=== PATIENT | female | born 1990 | race Caucasian/White ===

== ENCOUNTER 2021-09-04 00:11 | Emergency (ER) | payer SELFPAY ==
[2021-09-04 01:24] LABS: Absolute Lymphocytes (CBC) 1.8 K/uL (0.7-4.9); Hematocrit 31.7 % (36.0-45.0); Lymphocytes % 31.3 % (15.3-44.8); MPV 7.4 fL (7.6-11.3); RBC Red Blood Cell Count 4.75 M/uL (3.86-4.86)
[2021-09-04 01:30] LABS: Urine Blood Negative (Negative); Urine Glucose Negative (Negative); Urine Protein Negative (Negative); Urine pH 6.5 (5.0-7.0)
[2021-09-04 01:42] LABS: Albumin 4.6 g/dL (3.4-5.0); Bilirubin Total 0.2 mg/dL (0.2-1.0); Potassium 3.4 mmol/L (3.5-5.1)
[2021-09-04 01:46] LABS: Barbiturates NEGATIVE (NEGATIVE); Benzodiazepines NEGATIVE (NEGATIVE); Cocaine NEGATIVE (NEGATIVE); METHAMPHETAM NEGATIVE (NEGATIVE); Methadone NEGATIVE (NEGATIVE); Opiates NEGATIVE (NEGATIVE); Phencyclidine NEGATIVE (NEGATIVE); THC Cannibis NEGATIVE (NEGATIVE)
[2021-09-04 01:50] LABS: Anisocytosis 1+; Blood Morphology Comment NOTED (NOT SEEN); Hypochromasia 1+; Ovalocytes 1+; Platelet Estimate INCR; Platelets, Giant OCC; Poikilocytosis 1+; White Blood Cell Scan OK (OK)
[2021-09-04 01:51] LABS: Elliptocytes 2+; Teardrop Cell FEW
[2021-09-04] MEDS ORDERED: ONDANSETRON 4 MG/2 ML VIAL ONE (05:00)
[2021-09-04] MEDS ORDERED: KETOROLAC 30 MG/ML INJ ONE (05:00)
--- NOTE | 2021-09-04 06:25 | EDPHYS ---
Physician Documentation [facility] Name: Karen Bunn Age: 30 yrs Sex: Female : 1990 Arrival Date: 09/04/2021 Time: 00:15 Bed 5 Private MD: ED Physician Miguel Sosa HPI: 09/04 01:09 This 30 yrs old Female presents to ER via EMS with complaints of AMS. kdr 01:09 The patient presents with decreased mental status, decreased responsiveness. Onset: The kdr symptoms/episode began/occurred just prior to arrival. Possible causes: alcohol, head injury. Associated signs and symptoms: The patient has no apparent associated signs or symptoms. Current symptoms: In the emergency department the patient's symptoms are unchanged from the initial presentation. Patient's baseline: Neuro: alert and fully oriented, Motor: no deficits, Ambulation: walks without assistance, Speech: normal for age. Unable to obtain HPI due to altered mental status. It is unknown whether or not the patient has had similar symptoms in the past. It is unknown whether or not the patient has recently seen a physician. There was a reported crawfish crawl this evening to which her and her boyfriend currently attended. Patient was found laying on the sidewalk by the police. The boyfriend that was with her did not know her contact information specifically, her address. Patient otherwise appears to be stable and with significant drink, she did arouse and respond to questions. Historical: - Allergies: 00:28 No Known Allergies; kd3 - PMHx: 00:28 None; kd3 - PSHx: 00:28 None; kd3 - Immunization history:: Adult Immunizations unknown. - Social history:: Smoking status: unknown. ROS: 01:09 Constitutional: Unable to obtain Eyes: Negative for injury, pain, redness, and kdr discharge, Neck: Negative for injury, pain, and swelling, Cardiovascular: Negative for chest pain, palpitations, and edema, Respiratory: Negative for shortness of breath, cough, wheezing, and pleuritic chest pain, Abdomen/GI: Negative for abdominal pain, nausea, vomiting, diarrhea, and constipation, Back: Negative for injury and pain, MS/Extremity: Negative for injury and deformity. Exam: 01:09 Constitutional: This is a well developed, well nourished patient who is awake, alert, kdr and in no acute distress. Head/Face: Normocephalic, atraumatic. Eyes: Pupils equal round and reactive to light, extra-ocular motions intact. Lids and lashes normal. Conjunctiva and sclera are non-icteric and not injected. Cornea within normal limits. Periorbital areas with no swelling, redness, or edema. Neck: Trachea midline, no thyromegaly or masses palpated, and no cervical lymphadenopathy. Supple, full range of motion without nuchal rigidity, or vertebral point tenderness. No Meningismus. Chest/axilla: Normal chest wall appearance and motion. Nontender with no deformity. No lesions are appreciated. Cardiovascular: Regular rate and rhythm with a normal S1 and S2. No gallops, murmurs, or rubs. Normal PMI, no JVD. No pulse deficits. Respiratory: Lungs have equal breath sounds bilaterally, clear to auscultation and percussion. No rales, rhonchi or wheezes noted. No increased work of breathing, no retractions or nasal flaring. Abdomen/GI: Soft, non-tender, with normal bowel sounds. No distension or tympany. No guarding or rebound. No evidence of tenderness throughout. Back: No spinal tenderness. No costovertebral tenderness. Full range of motion. Skin: Warm, dry with normal turgor. Normal color with no rashes, no lesions, and no evidence of cellulitis. MS/ Extremity: Pulses equal, no cyanosis. Neurovascular intact. Full, normal range of motion. Neuro: Awake and alert, GCS 15, oriented to person, place, time, and situation. Cranial nerves II-XII grossly intact. Motor strength 5/5 in all extremities. Sensory grossly intact. Cerebellar exam normal. Normal gait. Psych: Awake, alert, with orientation to person, place and time. Behavior, mood, and affect are within normal limits. Vital Signs: 00:25 BP 112 / 69; Pulse 102; Resp 19; Pulse Ox 97% on R/A; Weight 68.95 kg; Height 5 ft. 7 kd3 in. (170.18 cm); 02:06 BP 115 / 71; Pulse 100; Resp 18; Pulse Ox 99% on R/A; kd3 05:22 Temp 98.4; kd3 06:30 BP 113 / 72; Pulse 99; Resp 17; Pulse Ox 99% on R/A; kd3 00:25 Body Mass Index 23.81 (68.95 kg, 170.18 cm) kd3 MDM: 01:09 Data reviewed: vital signs, nurses notes, lab test result(s), radiologic studies. kdr Counseling: I had a detailed discussion with the patient and/or guardian regarding: the historical points, exam findings, and any diagnostic results supporting the discharge/admit diagnosis, lab results, radiology results. 06:24 Patient medically screened. kdr 09/04 00:28 Order name: CBC with Diff; Complete Time: 02:43 kdr 09/04 00:28 Order name: Comprehensive Metabolic Panel; Complete Time: :43 kdr 09/04 00:28 Order name: UDS; Complete Time: :43 kdr 09/04 00:28 Order name: ETOH Level; Complete Time: : kdr 09/04 01:27 Order name: CBC Smear Scan; Complete Time: 02:43 EDMS 09/04 01:31 Order name: Urine Dipstick-Ancillary; Complete Time: 01:33 EDMS 09/04 01:09 Order name: CT Head C Spine kdr 09/04 01:09 Order name: Urine Test (obtain specimen); Complete Time: 01:31 kdr 09/04 01:33 Order name: Urine --Ancillary (enter results); Complete Time: 02:43 mw2 Administered Medications: 05:07 Drug: Ketorolac 15 mg Route: IVP; Site: right antecubital; kd3 06:30 Follow up: Response: Pain is decreased kd3 05:07 Drug: Zofran (Ondansetron) 4 mg Route: IVP; Site: right antecubital; kd3 06:30 Follow up: Response: No adverse reaction; Nausea is decreased kd3 Disposition Summary: 09/04/21 06:24 Discharge Ordered Location: Home kdr Problem: new kdr Symptoms: have improved kdr Condition: Stable kdr Diagnosis - Alcohol abuse with intoxication kdr - Alcohol abuse with intoxication, uncomplicated kdr Followup: kdr - With: Private Physician - When: 2 - 3 days - Reason: If symptoms return, Further diagnostic work-up, Recheck today's complaints, Continuance of care, Re-evaluation by your physician Discharge Instructions: - Discharge Summary Sheet kdr - Finding Treatment for Addiction kdr - Alcohol Use Disorder kdr - Substance Use Disorder kdr - Alcohol Intoxication, [id number] kdr - Alcohol Abuse and Nutrition kdr - Binge-Drinking Information, Adult kdr - Alcohol Withdrawal Syndrome, [id number] kdr Forms: - Medication Reconciliation Form kdr - Thank You Letter kdr Signatures: Dispatcher [employer] Miguel Quijano MD MD kdr Doucette, Kyli, RN RN kd3 Cecy Bedoya PA PA sb3
--- NOTE | 2021-09-04 06:25 | ER ---
Nurse's Notes [facility] Name: Karen Bunn Age: 30 yrs Sex: Female : 1990 Arrival Date: 09/04/2021 Time: 00:15 Bed 5 Private MD: Diagnosis: Alcohol abuse with intoxication;Alcohol abuse with intoxication, uncomplicated Presentation: 09/04 00:25 Chief complaint: EMS states: PT FOUND LAYING ON THE SIDE WALK. PT IS INTOXICATED. PT kd3 TRANSPORTED TO ER. NO VOMITING DURING TRANSPORT. Coronavirus screen: Vaccine status: Patient reports being unvaccinated. PT INTOXICATED. UNABLE TO ANSWER QUESTIONS. Ebola Screen: No symptoms or risks identified at this time. Ebola Screen: No symptoms or risks identified at this time. Initial Sepsis Screen: Does the patient meet any 2 criteria? No. Patient's initial sepsis screen is negative. Does the patient have a suspected source of infection? No. Patient's initial sepsis screen is negative. Risk Assessment: Do you want to hurt yourself or someone else? Patient reports no desire to harm self or others. Onset of symptoms was September 04, 2021. 00:25 Method Of Arrival: EMS: [facility] kd3 00:25 Acuity: CARLOS 3 kd3 Triage Assessment: 00:28 General: Appears in no apparent distress. Behavior is uncooperative. Pain: Denies pain. kd3 Historical: - Allergies: 00:28 No Known Allergies; kd3 - PMHx: 00:28 None; kd3 - PSHx: 00:28 None; kd3 - Immunization history:: Adult Immunizations unknown. - Social history:: Smoking status: unknown. Screenin:30 Abuse screen: Denies threats or abuse. Denies injuries from another. Nutritional kd3 screening: No deficits noted. Tuberculosis screening: No symptoms or risk factors identified. Fall Risk Gait- Impaired (20 pts.). Assessment: 01:12 General: Appears in no apparent distress. Behavior is uncooperative, Smells of alcohol. kd3 Neuro: Level of Consciousness is intoxicated . Oriented to person. Cardiovascular: Patient's skin is warm and dry. Respiratory: Airway is patent Trachea midline Respiratory effort is even, unlabored. 02:05 General: Appears comfortable, Behavior is uncooperative, Smells of alcohol. Pain: kd3 Denies pain. Neuro: Level of Consciousness is Oriented to. Cardiovascular: Patient's skin is warm and dry. Respiratory: Breath sounds are clear bilaterally. 03:05 Reassessment: sleeping in bed. vitals stable. kd3 06:29 Reassessment: Patient and/or family updated on plan of care and expected duration. Pain kd3 level reassessed. Patient is alert, oriented x 3, equal unlabored respirations, skin warm/dry/pink. Vital Signs: 00:25 BP 112 / 69; Pulse 102; Resp 19; Pulse Ox 97% on R/A; Weight 68.95 kg; Height 5 ft. 7 kd3 in. (170.18 cm); 02:06 BP 115 / 71; Pulse 100; Resp 18; Pulse Ox 99% on R/A; kd3 05:22 Temp 98.4; kd3 06:30 BP 113 / 72; Pulse 99; Resp 17; Pulse Ox 99% on R/A; kd3 00:25 Body Mass Index 23.81 (68.95 kg, 170.18 cm) kd3 ED Course: 00:15 Patient arrived in ED. mw2 00:25 Marta Junior, АНДРЕЙ is Primary Nurse. kd3 00:25 Inserted saline lock: 20 gauge in right antecubital area, using aseptic technique. kd3 00:28 Miguel Sosa MD is Attending Physician. kdr 00:28 Triage completed. kd3 00:30 Patient has correct armband on for positive identification. Bed in low position. Side kd3 rails up X2. 00:30 Arm band placed on right wrist. kd3 01:51 CT Head C Spine In Process Unspecified. EDMS Administered Medications: 05:07 Drug: Ketorolac 15 mg Route: IVP; Site: right antecubital; kd3 06:30 Follow up: Response: Pain is decreased kd3 05:07 Drug: Zofran (Ondansetron) 4 mg Route: IVP; Site: right antecubital; kd3 06:30 Follow up: Response: No adverse reaction; Nausea is decreased kd3 Outcome: 06:24 Discharge ordered by . kdr 06:30 Patient left the ED. kd3 Signatures: Dispatcher [employer] EDMS Miguel Sosa MD MD [facility] Manda Garza 2 Marta Junior RN RN kd3
[2021-09-04 06:39] VITALS: O2SAT 99
[2021-09-04 06:40] VITALS: TEMP 98.4
[2021-09-04 06:41] VITALS: BP 113/72
--- NOTE | 2021-09-05 09:25 | RAD REPORT ---
EXAM DESCRIPTION: CT - [id number] - 09/04/2021 6:52 am CLINICAL HISTORY: AMS COMPARISON: None. TECHNIQUE: CT HEAD AND CERVICAL SPINE WITHOUT CONTRAST on 09/04/2021 1:09 AM CDT This exam was performed according to our departmental dose-optimization program, which includes autom ated exposure control, adjustment of the mA and/or kV according to patient size and/or use of iterati ve reconstruction technique. FINDINGS: Brain: There is no acute hemorrhage, mass effect or midline shift. Arias-white differentiat ion is preserved. There is no hydrocephalus. There is no significant volume loss for age. The calvarium is intact. Orbits and globes are unremarkable. The paranasal sinuses are clear. Mastoid air cells are clear. Cervical Spine: There is no acute fracture. Alignment is anatomic. Disc spaces are maintained. Vertebral body heights are preserved. Soft tissues are unremarkable. IMPRESSION: No acute postraumatic findings. Electronically signed by: Frederick Mitchell MD 09/04/2021 2:40 AM CDT Due to temporary technical issues with the PACS/Fluency reporting system, reports are being signed by the in house radiologists without review as a courtesy to insure prompt reporting. The interpreting radiologist is fully responsible for the content of the report.
== END 2021-09-04 06:30 | disposition home or self-care (01) ==
LOC: ER 00:11
DX: F10.129 Alcohol abuse with intoxication, unspecified (principal)
CPT/HCPCS: 36415; 70450; 72125; 80053; 80307; 80320; 81003; 81025; 85025; 96374; 96375; 99284; J2405

== ENCOUNTER 2022-03-14 19:25 | Emergency (ER) | payer OTHER, SELFPAY ==
--- OUTSIDE RECORDS SUMMARY | 2022-03-14 19:28 | XMS REPORT | Continuity of Care Document ---
:1990 Author Organization [facility] t Address [address] [place] [address] Care Team Providers Name Role Phone Antonio Ivey DO Primary Care Physician MARC DURAN Attending Clinician Unavailable Antonio Ivey DO Attending Clinician Payers Payer Name Policy Type Policy Number Effective Date Expiration Date Luciano ng [employer]-ALLIED 2 [id number] 2021 00:00:00 BNFT SYSTEM/* Problems Condition Condition Condition Status Onset Resolution Last Treating Co mments Source Name Details Category Date Date Treatment Clinician Date Acute pain Acute pain Disease Active K elsey of right of right [address] shoulder shoulder 00:00: 00 Allergies, Adverse Reactions, Alerts This patient has no known allergies or adverse reactions. Social History Social Habit Start Date Stop Date Quantity Comments Source History SDOH Valery quinn Alcohol Binge History SDOH Valery quinn Alcohol Frequency History SDKS Valery quinn Alcohol Std Drinks Alcohol intake 2021-10-19 2021-10-19 Current drinker of Ajay Aldrich 00:00:00 00:00:00 alcohol (finding) Alcohol Comment 2021-10-11 2021-10-11 occasionally Valery Aldrich 00:00:00 00:00:00 Education 2021-10-11 2021-10-11 16 Valery Aldrich 00:00:00 00:00:00 Tobacco use and 2021-10-11 2021-10-11 Smokeless tobacco Ajay Aldrich exposure 00:00:00 00:00:00 non-user Sex Ass[birth year] Valery german 00:00:00 00:00:00 Smoking Status Start Date Stop Date Source Never smoked tobacco Valery cardoso Medications Ordered Filled Start Stop Current Ordering Indication Dosage Frequency Signature Comments Components Source Medication Medication Date Date Medication? Clinician (SIG) Name Name Meloxicam Yes [id number] 15mg QD Take 1 Ke lsey 15 MG oral 5-31 tablet (15 Sey bold Tablet 00:00: mg total) 00 by mouth daily as needed for pain Tizanidine Yes [id number] 2mg Q.5D Take 1 K elsey HCl 2 MG 5-31 capsule (2 Seybo ld oral 00:00: mg total) Capsule 00 by mouth as needed in the morning and 1 capsule (2 mg total) as needed in the evening for muscle spasms. Meloxicam Yes [id number] 15mg QD Take 1 Ke lsey 15 MG oral 5-31 tablet (15 Sey bold Tablet 00:00: mg total) 00 by mouth daily as needed for pain Tizanidine Yes [id number] 2mg Q.5D Take 1 K elsey HCl 2 MG 5-31 capsule (2 Seybo ld oral 00:00: mg total) Capsule 00 by mouth as needed in the morning and 1 capsule (2 mg total) as needed in the evening for muscle spasms. Vital Signs Vital Name Observation Time Observation Value Comments Source Body height 2021-10-19 15:38:00 160 cm Valery swan Body weight 2021-10-19 15:38:00 58.514 kg Valery swan BMI 2021-10-19 15:38:00 22.85 kg/m2 Valery swan Systolic blood pressure 2021-10-11 18:50:00 114 mm[Hg] Valery Aldrich Diastolic blood 2021-10-11 18:50:00 70 mm[Hg] Kristina Aldrich pressure Heart rate 2021-10-11 18:50:00 98 /min Valery swan Body temperature 2021-10-11 18:50:00 36.78 Carmela Shonna Aldrich Respiratory rate 2021-10-11 18:50:00 14 /min Shonna Aldrich Body height 2021-10-11 18:50:00 160 cm Valery swan Body weight 2021-10-11 18:50:00 58.514 kg Valery swan BMI 2021-10-11 18:50:00 22.85 kg/m2 Valery ingramcheyenne Procedures This patient has no known procedures. Encounters Start End Encounter Admission Attending Care Care Encounter Source Date/Time Date/Time Type Type Clinicians Facility Department ID 2021-10-19 2021-10-19 Office NEAL DURAN [id number] Valery 10:30:00 10:30:00 Visit MARC [id number] Se ybold [id number] 2021-10-19 2021-10-19 Outpatient VALERY RASMUSSEN [id number] Valery 09:55:00 09:55:00 Seybol d 2021-10-11 2021-10-11 Office Kenney Ivey [id number] Valery 14:00:00 14:30:00 Visit Antonio Horn [id number] Se ybold [id number] 2021-10-11 2021-10-11 Outpatient VALERY DURAN [id number] Valery 00:00:00 00:00:00 MARC santos Results This patient has no known results.
[2022-03-14] MEDS ORDERED: MAGNES/ALUMIN/SIMET 30ML UCUP ONE (20:24)
[2022-03-14] MEDS ORDERED: LIDOCAINE VISCOUS 2% SOLN 15 ML UDC ONE (20:24)
[2022-03-14 20:41] LABS: Urine Blood 2+ (Negative); Urine Glucose Negative (Negative); Urine Protein Negative (Negative); Urine Specific Gravity 1.025 (1.005-1.030)
[2022-03-14 20:50] LABS: Absolute Lymphocytes (CBC) 1.1 K/uL (0.7-4.9); Hematocrit 28.1 % (36.0-45.0); Lymphocytes % 21.6 % (15.3-44.8); MCV 64.6 fL (80-100); MPV 7.5 fL (7.6-11.3); RBC Red Blood Cell Count 4.35 M/uL (3.86-4.86)
[2022-03-14 21:00] LABS: Blood Morphology Comment NOTED (NOT SEEN); Hypochromasia 2+; Platelet Estimate ADEQ; White Blood Cell Scan OK (OK)
[2022-03-14 21:01] LABS: Urine Specific Gravity/Preg 1.025 (1.005-1.030)
[2022-03-14 21:12] LABS: Potassium 3.4 mmol/L (3.5-5.1); Troponin High Sensitivity 4.8 pg/mL (<58.9)
[2022-03-14] MEDS ORDERED: OSELTAMIVIR 75 MG CAP ONE (23:02)
--- NOTE | 2022-03-14 23:02 | EDPHYS ---
Physician Documentation [facility] Name: Karen Bunn Age: 31 yrs Sex: Female : 1990 Arrival Date: 03/14/2022 Time: 19:31 Bed 17 Private MD: ED Physician Ayad Appiah HPI: 03/14 22:17 This 31 yrs old Female presents to ER via Ambulatory with complaints of chest pain, abd rn pain. 22:17 The patient or guardian reports chest pain that is located primarily in the substernal rn area, epigastric area. The pain does not radiate. Associated signs and symptoms: Pertinent positives: abdominal pain, nasal congestion, Pertinent negatives: cough, lower extremity swelling, palpitations, shortness of breath, syncope. The chest pain is described as sharp, stabbing. Duration: The patient or guardian reports multiple episodes, that are intermittent. Modifying factors: The symptoms are alleviated by nothing. the symptoms are aggravated by deep breath. Severity of pain: At its worst the pain was mild in the emergency department the pain is unchanged. The patient has not experienced similar symptoms in the past. The patient has not recently seen a physician. Pt reports approx 1-2 hours of lower chest pain and epigastric area, started after eating, no fever, + runny nose. Denies cough. Denies vomiting. . 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 Flu vaccine is not up to date. - Social history:: Smoking status: Patient denies any tobacco usage or history of. Patient/guardian denies using alcohol, street drugs. - Family history:: not pertinent. - Hospitalizations: : No recent hospitalization is reported. ROS: 22:17 Constitutional: Negative for fever, chills, and weight loss, Eyes: Negative for injury, rn pain, redness, and discharge, Neck: Negative for injury, pain, and swelling, Cardiovascular: Negative for palpitations, and edema, Respiratory: Negative for shortness of breath, cough, wheezing Abdomen/GI: Negative for vomiting, diarrhea, and constipation, Back: Negative for injury and pain, MS/Extremity: Negative for injury and deformity, Skin: Negative for injury, rash, and discoloration, Neuro: Negative for headache, numbness, tingling, and seizure. Exam: 21:35 ECG was reviewed by the Attending Physician. rn 22:17 Constitutional: This is a well developed, well nourished patient who is awake, alert, rn and in no acute distress. Head/Face: Normocephalic, atraumatic. Eyes: Periorbital areas with no swelling, redness, or edema. ENT: No stridor. Mucous membranes moist. Cardiovascular: Regular rate and rhythm. No pulse deficits. Respiratory: No increased work of breathing, no retractions or nasal flaring. Clear bilateral breath sounds, no retractions. Abdomen/GI: soft, mild epigastric tenderness, no rebound Skin: Warm, dry MS/ Extremity: Pulses equal, no cyanosis. Neuro: Awake and alert, GCS 15 Vital Signs: 19:34 BP 117 / 82; Pulse 70; Resp 17 S; Temp 98.0(O); Pulse Ox 100% on R/A; Weight 52.16 kg kb3 (R); Height 5 ft. 3 in. (160.02 cm) (R); Pain 8/10; 20:42 BP 115 / 74; Pulse 68; Resp 17; Pulse Ox 100% ; jj7 21:48 BP 122 / 86; Pulse 64; Resp 17; Pulse Ox 99% ; jj7 22:45 BP 118 / 73; Pulse 62; Resp 17; Pulse Ox 99% ; jj7 23:19 BP 114 / 63; Pulse 60; Resp 18; Pulse Ox 100% ; Pain 0/10; jj7 19:34 Body Mass Index 20.37 (52.16 kg, 160.02 cm) kb3 MDM: 19:39 Patient medically screened. rn 23:00 ED course: [facility] not working, called Dr. Membreno who reports CXR/CT PE/Ultrasound rn neg for acute findings. . 03/14 19:47 Order name: Basic Metabolic Panel; Complete Time: 21:27 rn 03/14 19:47 Order name: CBC with Diff; Complete Time: 21:07 rn 03/14 19:47 Order name: NT PRO-BNP; Complete Time: 21:27 rn 03/14 19:47 Order name: Troponin HS; Complete Time: 21:27 rn 03/14 19:47 Order name: Flu; Complete Time: 21:07 rn 03/14 20:41 Order name: Urine --Ancillary (enter results); Complete Time: 21:07 mw2 03/14 19:47 Order name: XRAY Chest (1 view) rn 03/14 19:47 Order name: CT Chest For PE Angio rn 03/14 20:06 Order name: US Abdomen Limited rn 03/14 20:42 Order name: Urine Dipstick-Ancillary; Complete Time: 21:07 EDMS 03/14 21:01 Order name: CBC Smear Scan; Complete Time: 21:07 EDWY 03/14 19:47 Order name: EKG; Complete Time: 19:48 rn 03/14 19:47 Order name: Cardiac monitoring; Complete Time: 20:21 rn 03/14 19:47 Order name: EKG - Nurse/Tech; Complete Time: 20:21 03/14 19:47 Order name: IV Saline Lock; Complete Time: 20:41 rn 03/14 19:47 Order name: Labs collected and sent; Complete Time: 20:41 rn 03/14 19:47 Order name: O2 Per Protocol; Complete Time: 20:21 rn 03/14 19:47 Order name: O2 Sat Monitoring; Complete Time: 20:21 rn 03/14 19:47 Order name: Urine Dipstick-Ancillary (obtain specimen); Complete Time: 20:41 rn 03/14 19:47 Order name: Urine Test (obtain specimen); Complete Time: 20:41 rn EC:35 Rate is 61 beats/min. Rhythm is regular. QRS [place]lin is Normal. AL interval is normal. QRS rn interval is normal. QT interval is normal. No Q waves. T waves are Normal. No ST changes noted. Clinical impression: Normal ECG. Interpreted by me. Reviewed by me. Administered Medications: 20:41 Drug: GI Cocktail without - (Maalox Suspension 30 ml, Lidocaine Liquid 2 % 15 jj7 ml) Route: PO; 23:08 Follow up: Response: No adverse reaction; Pain is decreased jj7 23:05 Drug: Ketorolac 15 mg Route: IVP; Site: right antecubital; jj7 23:09 Follow up: Response: No adverse reaction jj7 23:05 Drug: Tamiflu (oseltamivir) 75 mg Route: PO; jj7 23:09 Follow up: Response: No adverse reaction jj7 Disposition Summary: 03/14/22 23:01 Discharge Ordered Location: Home rn Problem: new rn Symptoms: have improved rn Condition: Stable rn Diagnosis - Influenza due to other identified influenza virus with other respiratory rn manifestations - Influenza due to other identified influenza virus with gastrointestinal rn manifestations Followup: rn - With: Private Physician - When: As needed - Reason: Recheck today's complaints, Re-evaluation by your physician Discharge Instructions: - Discharge Summary Sheet rn - Nonspecific Chest Pain, Adult rn - Influenza, Adult rn Forms: - Medication Reconciliation Form rn - Thank You Letter rn - Antibiotic disability attorney - Prescription Opioid Use rn Prescriptions: - Tamiflu 75 mg Oral Capsule - take 1 tablet by ORAL route every 12 hours for 5 days; 10 tablet; Refills: 0, rn Product Selection Permitted Signatures: Dispatcher [employer] Ayad Del Valle MD MD rn Bradberry, Kelly RN RN kb3 Paula Escalera RN RN jj7
--- NOTE | 2022-03-14 23:02 | ER ---
Nurse's Notes [facility] Name: Karen Bunn Age: 31 yrs Sex: Female : 1990 Arrival Date: 03/14/2022 Time: 19:31 Bed 17 Private MD: Diagnosis: Influenza due to other identified influenza virus with other respiratory manifestations;Influenza due to other identified influenza virus with gastrointestinal manifestations Presentation: 03/14 19:34 Chief complaint: Patient states: chest pain starting about an hour ago. center chest. kb3 described as sharp, stabbing. radiates to back. complaints of dizziness and shortness of breath. Coronavirus screen: Client denies travel out of the [place] in the last 14 days. At this time, the client does not indicate any symptoms associated with coronavirus-19. Ebola Screen: No symptoms or risks identified at this time. Initial Sepsis Screen: Does the patient meet any 2 criteria? No. Patient's initial sepsis screen is negative. Does the patient have a suspected source of infection? No. Patient's initial sepsis screen is negative. Risk Assessment: Do you want to hurt yourself or someone else? Patient reports no desire to harm self or others. Onset of symptoms was March 14, 2022. 19:34 Method Of Arrival: Ambulatory kb3 19:34 Acuity: CARLOS 3 kb3 Triage Assessment: 19:36 General: Appears in no apparent distress. uncomfortable, Behavior is calm, cooperative. kb3 Pain: Complains of pain in chest Pain radiates to back Quality of pain is described as heavy, sharp, shooting, stabbing, Noted to be grimacing, guarding, resistant to movement. EENT: No deficits noted. No signs and/or symptoms were reported regarding the EENT system. Neuro: No deficits noted. Vyas Agitation-Sedation Scale (RASS): 0 - Alert and Calm Level of Consciousness is awake, alert, obeys commands, Oriented to person, place, time, situation. Cardiovascular: No deficits noted. Reports chest pain, lightheadedness, shortness of breath, Capillary refill < 3 seconds Clubbing of nail beds is absent JVD is absent Patient's skin is warm and dry. Respiratory: No deficits noted. Airway is patent Trachea midline Respiratory effort is even, unlabored, Respiratory pattern is regular, symmetrical, Breath sounds are clear bilaterally. GI: No deficits noted. No signs and/or symptoms were reported involving the gastrointestinal system. Abdomen is flat, non-distended. : No deficits noted. No signs and/or symptoms were reported regarding the genitourinary system. Derm: No deficits noted. No signs and/or symptoms reported regarding the dermatologic system. Skin is intact, is healthy with good turgor, Skin is dry, Skin is normal, Skin temperature is warm. Musculoskeletal: No deficits noted. No signs and/or symptoms reported regarding the musculoskeletal system. Circulation, motion, and sensation intact. Range of motion: intact in all extremities. 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 Flu vaccine is not up to date. - Social history:: Smoking status: Patient denies any tobacco usage or history of. Patient/guardian denies using alcohol, street drugs. - Family history:: not pertinent. - Hospitalizations: : No recent hospitalization is reported. Screenin:40 Abuse screen: Denies threats or abuse. Nutritional screening: No deficits noted. jj7 Tuberculosis screening: No symptoms or risk factors identified. Fall Risk None identified. Assessment: 19:40 General: Appears in no apparent distress. uncomfortable, Behavior is calm, cooperative, jj7 appropriate for age. Pain: Complains of pain in xiphoid area and mid-sternal area Quality of pain is described as heavy. 23:21 Pain: Pain began suddenly. jj7 Vital Signs: 19:34 BP 117 / 82; Pulse 70; Resp 17 S; Temp 98.0(O); Pulse Ox 100% on R/A; Weight 52.16 kg kb3 (R); Height 5 ft. 3 in. (160.02 cm) (R); Pain 8/10; 20:42 BP 115 / 74; Pulse 68; Resp 17; Pulse Ox 100% ; jj7 21:48 BP 122 / 86; Pulse 64; Resp 17; Pulse Ox 99% ; jj7 22:45 BP 118 / 73; Pulse 62; Resp 17; Pulse Ox 99% ; jj7 23:19 BP 114 / 63; Pulse 60; Resp 18; Pulse Ox 100% ; Pain 0/10; jj7 19:34 Body Mass Index 20.37 (52.16 kg, 160.02 cm) kb3 ED Course: 19:31 Patient arrived in ED. ja2 19:36 Triage completed. kb3 19:36 Arm band placed on right wrist. kb3 19:39 Ayad Appiah MD is Attending Physician. rn 19:40 Patient has correct armband on for positive identification. Placed in gown. Bed in low jj7 position. Call light in reach. Client placed on continuous cardiac and pulse oximetry monitoring. NIBP monitoring applied. radiation monitor on. Pulse ox on. NIBP on. 20:18 XRAY Chest (1 view) In Process Unspecified. EDMS 20:20 Paula Escalera, АНДРЕЙ is Primary Nurse. jj7 20:41 Flu Sent. jj7 20:41 Basic Metabolic Panel Sent. jj7 20:41 CBC with Diff Sent. jj7 20:41 NT PRO-BNP Sent. jj7 20:41 Troponin HS Sent. jj7 20:50 US Abdomen Limited In Process Unspecified. EDMS 21:59 CT Chest For PE Angio In Process Unspecified. EDMS 23:20 No provider procedures requiring assistance completed. IV discontinued, intact, jj7 bleeding controlled, No redness/swelling at site. Pressure dressing applied. Patient maintains SpO2 saturation greater than 95% on room air. Administered Medications: 20:41 Drug: GI Cocktail without - (Maalox Suspension 30 ml, Lidocaine Liquid 2 % 15 jj7 ml) Route: PO; 23:08 Follow up: Response: No adverse reaction; Pain is decreased jj7 23:05 Drug: Ketorolac 15 mg Route: IVP; Site: right antecubital; jj7 23:09 Follow up: Response: No adverse reaction jj7 23:05 Drug: Tamiflu (oseltamivir) 75 mg Route: PO; jj7 23:09 Follow up: Response: No adverse reaction jj7 Medication: 19:40 VIS not applicable for this client. jj7 Outcome: 23:01 Discharge ordered by . rn 23:21 Discharged to home ambulatory. jj7 23:21 Condition: improved 23:21 Discharge instructions given to patient, Instructed on discharge instructions, medication usage, Demonstrated understanding of instructions, medications, Prescriptions given X 1. 23:24 Patient left the ED. jj7 Signatures: Dispatcher [employer] EDMS Ayad Appiah MD MD rn Alexander, Jessica ja2 Bradberry, Kelly RN RN kb3 Paula Escalera RN RN jj7
[2022-03-14] MEDS ORDERED: KETOROLAC 30 MG/ML INJ ONE (23:03)
--- NOTE | 2022-03-14 23:06 | RAD REPORT ---
EXAM DESCRIPTION: CT - Chest For Pe Angio - 03/14/2022 9:57 pm CLINICAL HISTORY: Chest pain COMPARISON: None. TECHNIQUE: Dynamically enhanced axial 3 mm thick images of the chest were obtained during administra tion of <100> mL Isovue 370 IV contrast. Coronal and oblique reconstruction images were generated and reviewed. Exam utilizes a protocol for optimal evaluation of pulmonary arterial tree. Maximum intensity projections 3D imaging was utilized All CT scans are performed using dose optimization technique as appropriate and may include automated exposure control or mA/KV adjustment according to patient size. FINDINGS: A pulmonary embolus is not seen. A thoracic aortic aneurysm is not noted. A pleural effusion is not seen. A pericardial effusion is not seen. A lung consolidation is not present. IMPRESSION: Negative for a pulmonary embolism.
--- NOTE | 2022-03-14 23:06 | RAD REPORT ---
EXAM DESCRIPTION: Martha Single View03/14/2022 8:16 pm CLINICAL HISTORY: Chest pain COMPARISON: none FINDINGS: The lungs appear clear of acute infiltrate. The heart is normal size IMPRESSION: No acute abnormalities displayed
--- NOTE | 2022-03-14 23:06 | RAD REPORT ---
EXAM DESCRIPTION: US - Abdomen Exam Limited - 03/14/2022 8:48 pm CLINICAL HISTORY: Abdominal pain. COMPARISON: None. FINDINGS: The patient was not NPO which limits evaluation of the gallbladder. The gallbladder is contracted. A gallstone is not seen. The biliary tree is normal caliber. IMPRESSION: Grossly normal gallbladder ultrasound. Patient was not NPO
[2022-03-15 01:41] VITALS: TEMP 98
[2022-03-15 01:46] VITALS: BP 114/63; O2SAT 100
--- NOTE | 2022-03-16 14:21 | EKG ---
Test Date: 2022-03-14 Test Time: 19:54:05 Refinisher: MEASUREMENT RESULTS: Intervals: Rate: 61 NC: 134 QRSD: 88 QT: 410 QTc: 412 [place]: P: 45 NC: 134 QRS: 68 T: 52 INTERPRETIVE STATEMENTS: Normal sinus rhythm Normal ECG No previous ECG available for comparison Electronically Signed On 03-16-22 14:18:04 CDT by Lion Martínez
== END 2022-03-14 23:24 | disposition home or self-care (01) ==
LOC: ER 19:25
DX: J10.2 Influenza due to other identified influenza virus with gastrointestinal manifestations (principal); J10.1 Influenza due to other identified influenza virus with other respiratory manifestations; Z20.822 Contact with and (suspected) exposure to COVID-19
CPT/HCPCS: 93005; 85025; 80048; 36415; 81025; 81003; 84484; 83880; 87804 ×2; 71275; 71045; 76705; 96374; 99285; Q9967

== ENCOUNTER 2022-06-07 04:19 | Emergency (ER) | payer OTHER ==
--- OUTSIDE RECORDS SUMMARY | 2022-06-07 04:21 | XMS REPORT | Continuity of Care Document ---
:1990 Author Organization [facility] t Address [address] [place] [address] Care Team Providers Name Role Phone Fer Ivey DO Primary Care Physician FER IVEY Attending Clinician Unavailable LAB90 Attending Clinician Unavailable MARC DURAN Attending Clinician Unavailable Fer Ivey DO Attending Clinician Payers Payer Name Policy Type Policy Number Effective Date Expiration Date Shari ng [employer]-ALLIED BNFT 2 [id number] 2021 SYSTEM/* 00:00:00 PHCS-ALLIED 2 [id number] 2021 BENEFITS SYS/PPO 00:00:00 Problems Condition Condition Condition Status Onset Resolution Last Treating Co mments Source Name Details Category Date Date Treatment Clinician Date Screening Screening Disease Active 2021-05 Marcelino quinn for for 1-10 Seybold diabetes diabetes 00:00: - mellitus mellitus 00 Revising Clerk a l Menorrhagi Menorrhagi Disease Active 2021-05 K elsey a with a with 1-10 Seybold regular regular 00:00: - cycle cycle 00 Externa l Other Other Disease Active 2021-05 Ene fatigue fatigue 1-10 Seybold 00:00: - 00 Externa l Acute pain Acute pain Disease Active K elsey of right of right 5-31 Seybol d shoulder shoulder 00:00: - 00 Externa l Allergies, Adverse Reactions, Alerts This patient has no known allergies or adverse reactions. Social History Social Habit Start Date Stop Date Quantity Comments Source History SDOH Ene Bond ld - Alcohol Binge External History SDOH Ene Bond ld - Alcohol Frequency Externa l History SDOH Ene Ricexenia ld - Alcohol Std Drinks Revising Clerk al Alcohol Comment 2022-03-23 2022-03-23 quit 5 weeks Ene Aldrich - 00:00:00 00:00:00 External Alcohol intake 2022-03-23 2022-03-23 Ex-drinker Ene shell - 00:00:00 00:00:00 (finding) External Education 2021-10-11 2021-10-11 16 Ene Aldrich - 00:00:00 00:00:00 External Tobacco use and 2021-10-11 2021-10-11 Smokeless tobacco Ajay nevarez Seybold - exposure 00:00:00 00:00:00 non-user External Sex [birth year] F Ene german - 00:00:00 00:00:00 External Smoking Status Start Date Stop Date Source Never smoked tobacco Ene cardoso - External Medications Ordered Filled Start Stop Current Ordering Indication Dosage Frequency Signature Comments Components Source Medication Medication Date Date Medication? Clinician (SIG) Name Name Multiple 2021-05 Yes 1{each} Take 1 Shonna ey Vitamins-Ir 1-10 each by Seybo ld on 09:17: mouth - (MULTIVITAM 53 daily Externa IN PLUS l IRON ADULT OR) Oseltamivir 2021-05- No Kelse y Phosphate 05-1510 Seybold 75 MG oral 00:00: 00:00 - Capsule 00 :00 Externa l Meloxicam Yes [id number] 15mg QD Take 1 Ke lsey 15 MG oral 5-31 tablet (15 Sey bold Tablet 00:00: mg total) 00 by mouth daily as needed for pain Tizanidine Yes [id number] 2mg Q.5D Take 1 K elsey HCl 2 MG 5-31 capsule (2 Seybo ld oral 00:00: mg total) Capsule 00 by mouth as needed in the morning and 1 capsule (2 mg total) as needed in the evening for muscle spasms. Meloxicam Yes [id number] 15mg QD Take 1 Ke lsey 15 MG oral 5-31 tablet (15 Sey bold Tablet 00:00: mg total) 00 by mouth daily as needed for pain Tizanidine Yes [id number] 2mg Q.5D Take 1 K elsey HCl 2 MG 5-31 capsule (2 Seybo ld oral 00:00: mg total) Capsule 00 by mouth as needed in the morning and 1 capsule (2 mg total) as needed in the evening for muscle spasms. Meloxicam 2021- No [id number] 15mg QD Take 1 K elsey 15 MG oral 5-31 11-10 tablet (15 Se ybold Tablet 00:00: 00:00 mg total) - 00 :00 by mouth Externa daily as l needed for pain Tizanidine 2021- No [id number] 2mg Q.5D Take 1 Ene HCl 2 MG 5-31 11-10 capsule (2 Seyb old oral 00:00: 00:00 mg total) - Capsule 00 :00 by mouth Externa as needed l in the morning and 1 capsule (2 mg total) as needed in the evening for muscle spasms. Immunizations Ordered Immunization Filled Immunization Date Status Commen ts Source Name Name Tdap- (Boostrix, 2022-03-23 Completed Ene swan Adacel) 00:00:00 - External Vital Signs Vital Name Observation Time Observation Value Comments Source Systolic blood 2022-03-23 15:08:00 110 mm[Hg] Ene Delacruzybold - pressure External Diastolic blood 2022-03-23 15:08:00 73 mm[Hg] Kristina matthew Seybold - pressure External Heart rate 2022-03-23 15:08:00 89 /min Ene swan - External Body temperature 2022-03-23 15:08:00 36.11 Carmela Shonna ey Seybold - External Respiratory rate 2022-03-23 15:08:00 14 /min Shonna raul Delacruzybold - External Body height 2022-03-23 15:08:00 160 cm Ene swan - External Body weight 2022-03-23 15:08:00 54.069 kg Ene Shari beny - External BMI 2022-03-23 15:08:00 21.12 kg/m2 Ene swan - External Body height 2021-10-19 15:38:00 160 cm Ene Shari beny Body weight 2021-10-19 15:38:00 58.514 kg Ene swan BMI 2021-10-19 15:38:00 22.85 kg/m2 Ene carterbocheyenne Systolic blood 2021-10-11 18:50:00 114 mm[Hg] Ene Seybold pressure Diastolic blood 2021-10-11 18:50:00 70 mm[Hg] Kelse y Seybold pressure Heart rate 2021-10-11 18:50:00 98 /min Ene swan Body temperature 2021-10-11 18:50:00 36.78 Carmela Shonna carter Seybold Respiratory rate 2021-10-11 18:50:00 14 /min Shonna carter Seybold Body height 2021-10-11 18:50:00 160 cm Ene carterbocheyenne Body weight 2021-10-11 18:50:00 58.514 kg Ene swan BMI 2021-10-11 18:50:00 22.85 kg/m2 Ene swan Procedures This patient has no known procedures. Encounters Start End Encounter Admission Attending Care Care Encounter Source Date/Time Date/Time Type Type Clinicians Facility Department ID 2022-03-31 2022-03-31 Outpatient ENE IVEY [id number] Ene 00:00:00 00:00:00 FER Seybol d 2022-03-24 2022-03-24 Outpatient ENE IVEY [id number] Ene 00:00:00 00:00:00 FER Seybol d 2022-03-23 2022-03-23 Outpatient LAB90 ENE RASMUSSEN [id number] Ene 10:15:00 10:15:00 Seybol d 2022-03-23 2022-03-23 Outpatient PREENE BURGOS [id number] Ene 09:30:00 09:30:00 FER Seybol d 2022-03-22 2022-03-22 Outpatient ENE IVEY [id number] Ene 09:00:00 09:00:00 FER Seybol d 2021-10-19 2021-10-19 Office NEAL DURAN [id number] Ene 10:30:00 10:30:00 Visit MARC [id number] Se ybold [id number] 2021-10-19 2021-10-19 Outpatient ENE RASMUSSEN [id number] Ene 09:55:00 09:55:00 Chuck santos 2021-10-11 2021-10-11 Office Kenney Ivey [id number] Ene 14:00:00 14:30:00 Visit Fer Horn [id number] Se ybold [id number] 2021-10-11 2021-10-11 Outpatient ENE DURAN [id number] Ene 00:00:00 00:00:00 MARC santos Results This patient has no known results.
--- NOTE | 2022-06-07 04:54 | ER ---
Nurse's Notes [facility] Name: Karen Bunn Age: 31 yrs Sex: Female : 1990 Arrival Date: 06/07/2022 Time: 04:22 Bed 13 Private MD: Diagnosis: Pain in right upper arm Presentation: 06/07 04:31 Chief complaint: Patient states: I have been having a pain on my right arm and I feel ha1 that it is getting worse over time. the pain radiates from the right shoulder to the right wrist. Coronavirus screen: Vaccine status:. Ebola Screen: Patient negative for fever greater than or equal to 101.5 degrees Fahrenheit, and additional compatible Ebola Virus Disease symptoms. 04:31 Initial Sepsis Screen: Does the patient meet any 2 criteria? No. Patient's initial ha1 sepsis screen is negative. Does the patient have a suspected source of infection? No. Patient's initial sepsis screen is negative. Risk Assessment: Do you want to hurt yourself or someone else? Patient reports no desire to harm self or others. Onset of symptoms was June 06, 2022. 04:31 Acuity: CARLOS 4 ha1 04:49 Method Of Arrival: Ambulatory ha1 Triage Assessment: 04:31 General: Appears comfortable, Behavior is calm, cooperative. Pain: Complains of pain in ha1 right shoulder and right arm Pain radiates to wrist Pain currently is 9 out of 10 on a pain scale. Quality of pain is described as. Historical: - Allergies: 04:53 No Known Allergies; ha1 - PMHx: 04:53 None; ha1 - PSHx: 04:53 c section X4; ha1 - Immunization history:: Adult Immunizations up to date. - Social history:: Smoking status: unknown. - Family history:: not pertinent. - Hospitalizations: : No recent hospitalization is reported. Screenin:20 [facility] ED Fall Risk Assessment (Adult) History of falling in the last 3 months, ha1 including since admission No falls in past 3 months (0 pts) Confusion or Disorientation No (0 pts) Intoxicated or Sedated No (0 pts) Impaired Gait No (0 pts) Mobility Assist Device Used No (0 pt) Altered Elimination No (0 pt) Score/Fall Risk Level 0 - 2 = Low Risk Oriented to surroundings, Maintained a safe environment, Educated pt \T\ family on fall prevention, incl call for assistance when getting out of bed. Abuse screen: Denies threats or abuse. Denies injuries from another. Nutritional screening: No deficits noted. Tuberculosis screening: No symptoms or risk factors identified. Assessment: 04:31 General: Appears comfortable, Behavior is calm, cooperative. Pain: Complains of pain in ha1 right shoulder and right wrist Pain does not radiate. Pain currently is 9 out of 10 on a pain scale. Is continuous, Alleviated by heat application, cold application. Neuro: Level of Consciousness is awake, alert, obeys commands, Oriented to person, place, time, situation. Cardiovascular: Capillary refill < 3 seconds Patient's skin is warm and dry. Respiratory: Airway is patent Respiratory effort is even, unlabored, Respiratory pattern is regular, symmetrical. GI: No signs and/or symptoms were reported involving the gastrointestinal system. Abdomen is flat, non-distended. : No signs and/or symptoms were reported regarding the genitourinary system. EENT: No deficits noted. No signs and/or symptoms were reported regarding the EENT system. Derm: Skin is pink, warm \T\ dry. Musculoskeletal: Circulation, motion, and sensation intact. Range of motion: intact in all extremities, Reports pain in right shoulder and right wrist. 05:28 Reassessment: Patient and/or family updated on plan of care and expected duration. Pain ha1 level reassessed. Patient is alert, oriented x 3, equal unlabored respirations, skin warm/dry/pink. Vital Signs: 04:31 BP 98 / 64; Pulse 58; Resp 16; Temp 97.7; Pulse Ox 100% on R/A; Weight 53.98 kg (M); ha1 Height 5 ft. 3 in. (160.02 cm); Pain 9/10; 04:31 Body Mass Index 21.08 (53.98 kg, 160.02 cm) ha1 ED Course: 04:22 Patient arrived in ED. jj6 04:23 Ayad Appiah MD is Attending Physician. rn 04:31 Patient has correct armband on for positive identification. Placed in gown. Bed in low ha1 position. Call light in reach. Side rails up X 1. 04:49 Noelle Bond RN is Primary Nurse. ha1 04:53 Triage completed. ha1 05:21 Arm band placed on right wrist. ha1 05:28 No provider procedures requiring assistance completed. ha1 05:28 Patient did not have IV access during this emergency room visit. ha1 Administered Medications: 05:10 Drug: Ketorolac 30 mg Route: IM; Site: left ventrogluteal; ha1 05:28 Follow up: Response: No adverse reaction ha1 05:12 Drug: Decadron (dexamethasone) 10 mg Route: IM; Site: left ventrogluteal; ha1 05:28 Follow up: Response: No adverse reaction ha1 Medication: 05:21 VIS not applicable for this client. ha1 Outcome: 04:53 Discharge ordered by . rn 05:28 Condition: stable ha1 05:28 Discharged to home ambulatory. ha1 05:28 Discharge instructions given to patient. 05:28 Instructed on discharge instructions, follow up and referral plans. medication usage, Demonstrated understanding of instructions, follow-up care, medications, Prescriptions given X 2. 05:29 Patient left the ED. ha1 Signatures: Ayad Appiah MD MD rn Jeffries, Jennifer jj6 Ayala, Heidy RN RN ha1
--- NOTE | 2022-06-07 04:54 | EDPHYS ---
Physician Documentation [facility] Name: Karen Bunn Age: 31 yrs Sex: Female : 1990 Arrival Date: 06/07/2022 Time: 04:22 Bed 13 Private MD: ED Physician Ayad Appiah HPI: 06/07 04:49 This 31 yrs old Female presents to ER via Unassigned with complaints of Arm Pain. rn 04:49 The patient or guardian complains of pain, that is acute. The complaints affect the rn anterior aspect of right shoulder, right bicep and dorsal aspect of right forearm. Onset: The symptoms/episode began/occurred yesterday. Treatment prior to arrival includes: icing the affected extremity, over the counter medications, applying pressure to the affected area. Modifying factors: The symptoms are alleviated by heat, remaining still, the symptoms are aggravated by movement, bending arm. Severity of symptoms: At their worst the symptoms were moderate, in the emergency department the symptoms are unchanged. The patient has not experienced similar symptoms in the past. The patient has not recently seen a physician. 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 No injury or direct trauma/fall. REports pain over right shoulder that radiates down right arm and worse with movement. NO fever/chills/chest pain/sob/abd pain. . Historical: - Allergies: 04:53 No Known Allergies; ha1 - PMHx: 04:53 None; ha1 - PSHx: 04:53 c section X4; ha1 - Immunization history:: Adult Immunizations up to date. - Social history:: Smoking status: unknown. - Family history:: not pertinent. - Hospitalizations: : No recent hospitalization is reported. ROS: 04:49 Constitutional: Negative for fever, chills, and weight loss, Neck: Negative for injury, rn pain, and swelling, Cardiovascular: Negative for chest pain, palpitations, and edema, Respiratory: Negative for shortness of breath, cough, wheezing, and pleuritic chest pain, Abdomen/GI: Negative for abdominal pain, nausea, vomiting, diarrhea, and constipation, MS/Extremity: + rue pain Skin: Negative for injury, rash, and discoloration, Neuro: Negative for headache, weakness, numbness, tingling, and seizure. Exam: 04:49 Constitutional: This is a well developed, well nourished patient who is awake, alert, rn and in no acute distress. Neck: NO midline tenderenss. Skin: Warm, dry with normal turgor. Normal color with no rashes, no lesions, and no evidence of cellulitis. MS/ Extremity: Pulses equal, no cyanosis. Neurovascular intact. No rash. NO bony tenderness. + painful ROM in every plane and tenderness along muscles of upper arm. NO crepitus or swelling. Vital Signs: 04:31 BP 98 / 64; Pulse 58; Resp 16; Temp 97.7; Pulse Ox 100% on R/A; Weight 53.98 kg (M); ha1 Height 5 ft. 3 in. (160.02 cm); Pain 9/10; 04:31 Body Mass Index 21.08 (53.98 kg, 160.02 cm) ha1 MDM: 04:23 Patient medically screened. rn 04:49 Differential diagnosis: tendonitis, overuse/repetitive motion, muscle spasm, rn radiculopathy. Data reviewed: vital signs, nurses notes, and as a result, I will discharge patient. Counseling: I had a detailed discussion with the patient and/or guardian regarding: the historical points, exam findings, and any diagnostic results supporting the discharge/admit diagnosis, the need for outpatient follow up, to return to the emergency department if symptoms worsen or persist or if there are any questions or concerns that arise at home. 04:49 ED course: SPoke at length with patient, will treat with steroids and muscle relaxers rn given lack of trauma and achy pain with movement. TOld to return immediately if anything worsens or medication does not help. . Administered Medications: 05:10 Drug: Ketorolac 30 mg Route: IM; Site: left ventrogluteal; ha1 05:28 Follow up: Response: No adverse reaction 1 05:12 Drug: Decadron (dexamethasone) 10 mg Route: IM; Site: left ventrogluteal; ha1 05:28 Follow up: Response: No adverse reaction ha1 Disposition Summary: 06/07/22 04:53 Discharge Ordered Location: Home rn Problem: new rn Symptoms: are unchanged rn Condition: Stable rn Diagnosis - Pain in right upper arm rn Followup: rn - With: Private Physician - When: As needed - Reason: Recheck today's complaints, Re-evaluation by your physician Discharge Instructions: - Discharge Summary Sheet rn - Musculoskeletal Pain rn - Pain Without a Known Cause rn Forms: - Medication Reconciliation Form rn - Thank You Letter rn - Antibiotic rn case management - Prescription Opioid Use rn - Work release form ha1 Prescriptions: - Medrol (Shiva) 4 mg Oral Tablets, Dose Pack - take 1 tablet by ORAL route as directed - follow package instructions; 1 rn packet; Refills: 0, Product Selection Permitted - Cyclobenzaprine 5 mg Oral Tablet - take 1 tablet by ORAL route 3 times per day As needed; 15 tablet; Refills: 0, rn Product Selection Permitted Signatures: Ayad Appiah MD MD rn Noelle Bond RN RN [facility]
[2022-06-07] MEDS ORDERED: KETOROLAC 30 MG/ML INJ ONE (05:09)
[2022-06-07] MEDS ORDERED: dexAMETHasone 10 MG/ML VIAL ONE (05:09)
[2022-06-07 07:14] VITALS: BP 98/64; TEMP 97.7; O2SAT 100
== END 2022-06-07 05:29 | disposition home or self-care (01) ==
LOC: ER 04:19
DX: M79.621 Pain in right upper arm (principal)
CPT/HCPCS: J1100

== ENCOUNTER 2022-06-08 15:08 | Emergency (ER) | payer OTHER ==
--- OUTSIDE RECORDS SUMMARY | 2022-06-08 15:14 | XMS REPORT | Continuity of Care Document ---
:1990 Author Organization [facility] t Address [address] [place] [address] Care Team Providers Name Role Phone Fer Ivey DO Primary Care Physician FER IVEY Attending Clinician Unavailable LAB90 Attending Clinician Unavailable MARC DURNA Attending Clinician Unavailable Fer Ivey DO Attending Clinician Payers Payer Name Policy Type Policy Number Effective Date Expiration Date Shari ng A[employer]-ALLIED BNFT 2 [id number] 2021 SYSTEM/* 00:00:00 PHCS-ALLIED 2 [id number] 2021 BENEFITS SYS/PPO 00:00:00 Problems Condition Condition Condition Status Onset Resolution Last Treating Co mments Source Name Details Category Date Date Treatment Clinician Date Screening Screening Disease Active 2021-05 Marcelino quinn for for 1-10 Seybold diabetes diabetes 00:00: - mellitus mellitus 00 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 Meloxicam Yes [id number] 15mg QD Take 1 Ke lsey 15 MG oral 5-31 tablet (15 Sey bold Tablet 00:00: mg total) 00 by mouth daily as needed for pain Tizanidine Yes [id number] 2mg Q.5D Take 1 K elsey HCl 2 MG 5-31 capsule (2 Seybo ld oral 00:00: mg total) Capsule 00 by mouth as needed in the morning and 1 capsule (2 mg total) as needed in the evening for muscle spasms. Meloxicam 2021- No [id number] 15mg QD Take 1 K elsey 15 MG oral 5-31 11-10 tablet (15 Se ybold Tablet 00:00: 00:00 mg total) - 00 :00 by mouth Externa daily as l needed for pain Tizanidine 2021- No [id number] 2mg Q.5D Take 1 Ene HCl 2 [...] Department ID 2022-03-31 2022-03-31 Outpatient ENE IVEY [id number] Ene 00:00:00 00:00:00 FER Seybol d 2022-03-24 2022-03-24 Outpatient ENE IVEY [id number] Ene 00:00:00 00:00:00 FER Seybol d 2022-03-23 2022-03-23 Outpatient LAB90 ENE RASMUSSEN [id number] Ene 10:15:00 10:15:00 Seybol d 2022-03-23 2022-03-23 Outpatient PREENE BURGOS [id number] Ene 09:30:00 09:30:00 FER Seybol d 2022-03-22 2022-03-22 Outpatient ENE IVEY [id number] Ene 09:00:00 09:00:00 FER Seybol d 2021-10-19 2021-10-19 Office NEAL DURAN [id number] Ene 10:30:00 10:30:00 Visit MARC [id number] Se ybold [id number] 2021-10-19 2021-10-19 Outpatient ENE RASMUSSEN [id number] Ene 09:55:00 09:55:00 Chuck santos 2021-10-11 2021-10-11 Office Kenney Ivey [id number] Ene 14:00:00 14:30:00 Visit Fer Horn [id number] Se ybold [id number] 2021-10-11 2021-10-11 Outpatient ENE DURAN [id number] Ene 00:00:00 00:00:00 MARC santos Results This patient has no known results.
--- NOTE | 2022-06-08 17:39 | EDPHYS ---
Physician Documentation [facility] Name: Karen Bunn Age: 31 yrs Sex: Female : 1990 Arrival Date: 06/08/2022 Time: 15:17 Bed 9 Private MD: ED Physician Ronnell Hernandez HPI: 06/08 15:55 This 31 yrs old Female presents to ER via Ambulatory with complaints of Arm Pain. cp 15:55 The patient or guardian complains of pain, that is acute. The complaints affect the cp posterior aspect of right shoulder and right upper arm. 15:55 Context: resulted from unknown cause. Onset: The symptoms/episode began/occurred 2 cp day(s) ago. Associated signs and symptoms: Pertinent positives: numbness, of the right forearm and right hand, Pertinent negatives: deformity, weakness. Severity of symptoms: in the emergency department the symptoms are unchanged, despite home interventions. The patient has been recently seen at the [facility] Emergency Department, yesterday, for similar complaints prescribed steroids and muscle relaxer w/o relief. 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 - Social history:: Smoking status: Reported history of juuling and/or vaping. ROS: 16:00 Constitutional: Negative for body aches, chills, fever, poor PO intake. cp 16:00 Cardiovascular: Negative for chest pain, edema, palpitations. cp 16:00 Respiratory: Negative for cough, shortness of breath, wheezing. 16:00 Abdomen/GI: Negative for abdominal pain, nausea, vomiting, and diarrhea. 16:00 Eyes: Negative for injury, pain, redness, and discharge. cp 16:00 ENT: Negative for drainage from ear(s), ear pain, sore throat, difficulty swallowing, cp difficulty handling secretions. 16:00 Back: Positive for pain at rest, pain with movement, of the right scapular area. 16:00 MS/extremity: Positive for pain, of the right shoulder and right upper arm, numbness of right forearm, Negative for injury or acute deformity. 16:00 Neuro: Negative for altered mental status, dizziness, headache, weakness. 16:00 All other systems are negative. Exam: 16:05 Constitutional: The patient appears in no acute distress, alert, awake, cp non-diaphoretic, non-toxic, well developed, well nourished. 16:05 Head/Face: Normocephalic, atraumatic. cp 16:05 Neck: C-spine: vertebral tenderness, is not appreciated, crepitus, is not appreciated, ROM/movement: is normal, is supple, without pain, no range of motions limitations, no nuchal rigidity. 16:05 Chest/axilla: Inspection: normal. 16:05 Cardiovascular: Rate: normal, Rhythm: regular. 16:05 Respiratory: the patient does not display signs of respiratory distress, Respirations: normal, no use of accessory muscles, no retractions, labored breathing, is not present, Breath sounds: are clear throughout, no decreased breath sounds, no stridor, no wheezing. 16:05 Abdomen/GI: Exam negative for discomfort, distension, guarding, Inspection: abdomen appears normal. 16:05 Back: pain, that is severe, of the right scapular area, ROM is painful. 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 16:05 Neuro: Orientation: to person, place \T\ time. Mentation: is normal. Vital Signs: 15:25 BP 104 / 63; Pulse 63; Resp 16 S; Temp 98.2(TE); Pulse Ox 100% on R/A; Weight 53.98 kg aa5 (R); Height 5 ft. 3 in. (160.02 cm) (R); 15:25 Body Mass Index 21.08 (53.98 kg, 160.02 cm) aa5 MDM: 15:29 Patient medically screened. cp 16:00 Differential diagnosis: muscle spasm, tendonitis, pneumothorax, fracture, DVT. cp 17:37 Data reviewed: vital signs, nurses notes, radiologic studies, plain films, ultrasound. cp 17:38 I considered the following discharge prescriptions or medication management in the cp emergency department Medications were administered in the Emergency Department. See MAR. 17:38 Independent interpretation of the following test(s) in the Emergency Department X-Ray: cp My interpretation is shoulder negative for pneumothorax and fracture. Test considered but Not performed: CT: chest. Counseling: I had a detailed discussion with the patient and/or guardian regarding: the historical points, exam findings, and any diagnostic results supporting the discharge/admit diagnosis, radiology results, the need for outpatient follow up, a family practitioner, to return to the emergency department if symptoms worsen or persist or if there are any questions or concerns that arise at home. Response to treatment: the patient's symptoms have mildly improved after treatment, and as a result, I will discharge patient. 06/08 17:41 Order name: Urine Dipstick-Ancillary; Complete Time: 17:53 EDMS 06/08 18:20 Order name: Urine --Ancillary (enter results) kj 06/08 15:51 Order name: XRAY Shoulder RIGHT 2 view; Complete Time: 17:53 cp 06/08 17:53 Interpretation: Reviewed. 06/08 16:37 Order name: UPPER EXTREMITY VENOUS UNILATE; Complete Time: 17:53 EDMS 06/08 17:53 Interpretation: Report reviewed. 06/08 15:51 Order name: Urine Test (obtain specimen); Complete Time: 17:40 cp Administered Medications: 17:58 Drug: Ketorolac 30 mg Route: IM; Site: right deltoid; ap3 18:36 Follow up: Response: No adverse reaction; Pain is decreased ap3 17:58 Drug: morphine 2 mg Route: IM; Site: right deltoid; ap3 18:36 Follow up: Response: No adverse reaction; Pain is decreased ap3 18:34 Drug: Lidoderm Patch 5 % (700 mg/patch) 1 patches Route: Topical; Site: affected area; ap3 Disposition: 18:51 I reviewed the patient's care provided by the Advanced Practice Provider and agree with corrina the diagnosis and treatment plan. Disposition Summary: 06/08/22 17:38 Discharge Ordered Location: Home cp Problem: an ongoing problem cp Symptoms: have improved cp Condition: Stable cp Diagnosis - Dorsalgia, unspecified cp - Pain in right shoulder cp Followup: cp - With: Private Physician - When: 2 - 3 days - Reason: Recheck today's complaints Discharge Instructions: - Discharge Summary Sheet cp - Acute Back Pain, Adult cp - Shoulder Pain cp - Shoulder Range of Motion Exercises cp Forms: - Medication Reconciliation Form cp - Thank You Letter cp - Antibiotic Education cp - Prescription Opioid Use cp - Work release form ap3 Prescriptions: - Lidoderm 5 % Topical adhesive patch,medicated - apply 1 patch by TOPICAL route once daily As needed; 14 patch; Refills: 0, cp Product Selection Permitted - Diclofenac Sodium 75 mg Oral Tablet Sustained Release - take 1 tablet by ORAL route 2 times per day; 30 tablet; Refills: 0, Product cp Selection Permitted - methocarbamol 500 mg Oral Tablet - take 1 tablet by ORAL route 3-4 times daily; 30 tablet; Refills: 0, Product cp Selection Permitted Signatures: Dispatcher [employer] EDMS Nikki Perea, RN RN aa5 Tobin Johnson PA PA Shameka Ramos RN RN ap3 Ronnell Hernandez MD MD [id number] Corrections: (The following items were deleted from the chart) 16:37 15:52 Extremity Venous Uni [id number] ordered. EDMS EDMS 17:58 17:03 Sling ordered. cp ap3 06/09 16:55 06/08 16:00 Differential diagnosis: muscle spasm, tendonitis, pneumothorax, fracture cp cp
--- NOTE | 2022-06-08 17:39 | ER ---
Nurse's Notes [facility] Name: Karen Bunn Age: 31 yrs Sex: Female : 1990 Arrival Date: 06/08/2022 Time: 15:17 Bed 9 Private MD: Diagnosis: Dorsalgia, unspecified;Pain in right shoulder Presentation: 06/08 15:25 Chief complaint: Patient states: right arm pain since Sunday, reports being seen here aa5 yesterday and prescribed medrol pack and cyclobenzaprine without improvement. 15:27 Coronavirus screen: At this time, the client does not indicate any symptoms associated aa5 with coronavirus-19. Ebola Screen: Patient denies travel to an Ebola-affected area in the 21 days before illness onset. Initial Sepsis Screen: Does the patient meet any 2 criteria? No. Patient's initial sepsis screen is negative. Does the patient have a suspected source of infection? No. Patient's initial sepsis screen is negative. Risk Assessment: Do you want to hurt yourself or someone else? Patient reports no desire to harm self or others. Onset of symptoms was May 2022. 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 - Social history:: Smoking status: Reported history of juuling and/or vaping. Screenin:56 [facility] ED Fall Risk Assessment (Adult) History of falling in the last 3 months, ap3 including since admission No falls in past 3 months (0 pts). Abuse screen: Denies threats or abuse. Nutritional screening: No deficits noted. Tuberculosis screening: No symptoms or risk factors identified. Assessment: 15:55 General: Appears in no apparent distress. Behavior is calm, cooperative. Pain:. ap3 15:55 Pain: Complains of pain in right arm Pain began gradually. Neuro: Level of ap3 Consciousness is awake, alert, obeys commands, Oriented to person, place, time, Gait is steady, Speech is normal. Cardiovascular: Patient's skin is warm and dry. Respiratory: Airway is patent Respiratory effort is even, unlabored. Vital Signs: 15:25 BP 104 / 63; Pulse 63; Resp 16 S; Temp 98.2(TE); Pulse Ox 100% on R/A; Weight 53.98 kg aa5 (R); Height 5 ft. 3 in. (160.02 cm) (R); 15:25 Body Mass Index 21.08 (53.98 kg, 160.02 cm) aa5 ED Course: 15:17 Patient arrived in ED. aa5 15:17 Tobin Johnson PA is PHCP. cp 15:17 Ronnell Hernandez MD is Attending Physician. cp 15:25 Arm band placed on. aa5 15:28 Triage completed. aa5 15:47 Shameka Phelps, АНДРЕЙ is Primary Nurse. ap3 15:56 Patient has correct armband on for positive identification. Bed in low position. Call ap3 light in reach. Pulse ox on. NIBP on. Door closed. Noise minimized. 16:29 XRAY Shoulder RIGHT 2 view In Process Unspecified. EDMS 17:06 UPPER EXTREMITY VENOUS UNILATE In Process Unspecified. EDMS 18:36 No provider procedures requiring assistance completed. Patient did not have IV access ap3 during this emergency room visit. Administered Medications: 17:58 Drug: Ketorolac 30 mg Route: IM; Site: right deltoid; ap3 18:36 Follow up: Response: No adverse reaction; Pain is decreased ap3 17:58 Drug: morphine 2 mg Route: IM; Site: right deltoid; ap3 18:36 Follow up: Response: No adverse reaction; Pain is decreased ap3 18:34 Drug: Lidoderm Patch 5 % (700 mg/patch) 1 patches Route: Topical; Site: affected area; ap3 Medication: 15:56 VIS not applicable for this client. ap3 Outcome: 17:38 Discharge ordered by . cp 18:37 Discharged to home ambulatory, with family. ap3 18:37 Condition: good 18:37 Discharge instructions given to patient, Instructed on discharge instructions, follow up and referral plans. Demonstrated understanding of instructions, follow-up care, medications, Prescriptions given X 3. 18:37 Patient left the ED. ap3 Signatures: Dispatcher [employer] EDMS Nikki Perea RN RN aa5 Tobin Johnson PA PA cp Prokisch, Amanda, RN RN ap3
[2022-06-08 17:41] LABS: Urine Blood Negative (Negative); Urine Glucose Negative (Negative); Urine Protein Negative (Negative)
--- NOTE | 2022-06-08 17:43 | RAD REPORT ---
EXAM DESCRIPTION: RAD - Shoulder Right 2 View - 06/08/2022 4:27 pm CLINICAL HISTORY: Right shoulder pain FINDINGS: No fracture or dislocation is seen. No significant bone or joint abnormality noted
--- NOTE | 2022-06-08 17:44 | RAD REPORT ---
EXAM DESCRIPTION: US - UPPER EXTREMITY VENOUS UNILATE - 06/08/2022 5:04 pm CLINICAL HISTORY: Right upper extremity pain COMPARISON: None. FINDINGS: The right internal jugular, subclavian, brachial, axillary, cephalic, basilic, radial and ulnar veins demonstrate phasic signal. The veins are generally compressible. Doppler demonstrates good flow IMPRESSION: No evidence of thrombus involving the right upper extremity
[2022-06-08] MEDS ORDERED: MORPHINE 2 MG/ML SYR ONE (17:52)
[2022-06-08] MEDS ORDERED: KETOROLAC 30 MG/ML INJ ONE (17:52)
[2022-06-08] MEDS ORDERED: LIDOCAINE 4% PATCH ONE (18:04)
[2022-06-08 19:53] VITALS: BP 104/63; TEMP 98.2; O2SAT 100
== END 2022-06-08 18:37 | disposition home or self-care (01) ==
LOC: ER 15:08
DX: M25.511 Pain in right shoulder (principal); M54.9 Dorsalgia, unspecified
CPT/HCPCS: 81025; 81003; 73030; 93971; 96372; 99284; J2001; J2270

== ENCOUNTER 2022-11-03 13:52 | Emergency (ER) | payer OTHER ==
[2022-11-03 14:52] LABS: Absolute Lymphocytes (CBC) 1.3 K/uL (0.7-4.9); Hematocrit 35.3 % (36.0-45.0); Lymphocytes % 21.3 % (15.3-44.8); MPV 7.5 fL (7.6-11.3)
[2022-11-03] MEDS ORDERED: ASPIRIN 81 MG CHEWABLE TABLET ONE (14:53)
[2022-11-03] MEDS ORDERED: NITROGLYCERIN 0.4 MG/TAB SL ONE (14:53)
--- OUTSIDE RECORDS SUMMARY | 2022-11-03 15:00 | XMS REPORT | Continuity of Care Document ---
:1990 Author Organization [facility] t Address [address] [place] [address] [address] [place] [address] Care Team Providers Name Role Phone Fer Ivey DO Primary Care Physician FER IVEY Attending Clinician Unavailable LAB90 Attending Clinician Unavailable MARC DURAN Attending Clinician Unavailable Fer Ivey DO Attending Clinician Payers Payer Name Policy Type Policy Number Effective Date Expiration Date S ource PHCS-ALLIED 2 [id number] 2021 BENEFITS SYS/PPO 00:00:00 AET[employer]-ALLIED BNFT 2 [id number] 2021 SYSTEM/* 00:00:00 Problems Condition Condition Condition Status Onset Resolution Last Treating Co mments Source Name Details Category Date Date Treatment Clinician Date Screening Screening Disease Active 2021-05 Marcelino y for for 1-10 Seybold diabetes diabetes 00:00: - mellitus mellitus 00 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 Meloxicam Yes [id number] 15mg QD Take 1 Ke lsey 15 MG oral 5-31 tablet (15 Sey bold Tablet 00:00: mg total) 00 by mouth daily as needed for pain Tizanidine Yes [id number] 2mg Q.5D Take 1 K elsey HCl 2 MG 5-31 capsule (2 Seybo ld oral 00:00: mg total) Capsule 00 by mouth as needed in the morning and 1 capsule (2 mg total) as needed in the evening for muscle spasms. Meloxicam 2021- No [id number] 15mg QD Take 1 K elsey 15 MG oral 5-31 11-10 tablet (15 Se ybold Tablet 00:00: 00:00 mg total) - 00 :00 by mouth Externa daily as l needed for pain Tizanidine 2021- No [id number] 2mg Q.5D Take 1 Ene HCl 2 [...] Respiratory rate 2022-03-23 15:08:00 14 /min Shonna carter ybold - External Body height 2022-03-23 15:08:00 160 cm Ene swan - External Body weight 2022-03-23 15:08:00 54.069 kg Ene swan - External BMI 2022-03-23 15:08:00 21.12 kg/m2 Ene swan - External Body height 2021-10-19 15:38:00 160 cm Ene swan Body weight 2021-10-19 15:38:00 58.514 kg Ene carterb[place]yenne BMI 2021-10-19 15:38:00 22.85 kg/m2 Ene carterbocheyenne [...] Body weight 2021-10-11 18:50:00 58.514 kg Ene carterbocheyenne BMI 2021-10-11 18:50:00 22.85 kg/m2 Ene swan Procedures This patient has no known procedures. Encounters Start End Encounter Admission Attending Care Care Encounter Source Date/Time Date/Time Type Type Clinicians Facility Department ID 2022-08-31 2022-08-31 Outpatient ENE IVEY [id number] Ene 00:00:00 00:00:00 FER Seybol d 2022-03-31 2022-03-31 Outpatient ENE IVEY [id number] Ene 00:00:00 00:00:00 FER Seybol d 2022-03-24 2022-03-24 Outpatient ENE IVEY [id number] Ene 00:00:00 00:00:00 FER Seybol d 2022-03-23 2022-03-23 Outpatient LAB90 ENE RASMUSSEN [id number] Ene 10:15:00 10:15:00 Seybol d 2022-03-23 2022-03-23 Outpatient ENE IVEY [id number] Ene 09:30:00 09:30:00 FER Seybol d 2022-03-22 2022-03-22 Outpatient ENE IVEY [id number] Ene 09:00:00 09:00:00 FER Seybol d 2021-10-19 2021-10-19 Office NEAL DURAN [id number] Ene 10:30:00 10:30:00 Visit MARC [id number] Se ybold [id number] 2021-10-19 2021-10-19 Outpatient ENE RASMUSSEN [id number] Ene 09:55:00 09:55:00 Chuck santos 2021-10-11 2021-10-11 Office Kenney Ivey [id number] Ene 14:00:00 14:30:00 Visit Fer Horn [id number] Se ybold [id number] 2021-10-11 2021-10-11 Outpatient ENE DURAN [id number] Ene 00:00:00 00:00:00 MARC santos Results This patient has no known results.
[2022-11-03 15:27] LABS: Bilirubin Direct 0.1 mg/dL (0-0.2); Bilirubin Indirect, Calculated 0.1 mg/dL (0.2-0.8); Bilirubin Total 0.2 mg/dL (0.2-1.0); Potassium 3.9 mEq/L (3.5-5.1); Protein, Total 7.2 g/dL (6.4-8.2); Troponin High Sensitivity 3.2 pg/mL (<58.9)
--- NOTE | 2022-11-03 15:56 | RAD REPORT ---
EXAM DESCRIPTION: RAD - Chest Single View - 11/03/2022 3:45 pm CLINICAL HISTORY: CHEST PAIN Chest pain. COMPARISON: Chest Single View dated 03/14/2022 FINDINGS: Portable technique limits examination quality. The lungs are grossly clear. The heart is normal in size. No displaced fractures. IMPRESSION: No acute intrathoracic process suspected.
--- NOTE | 2022-11-03 16:26 | EDPHYS ---
Physician Documentation [facility] Name: Karen Bunn Age: 31 yrs Sex: Female : 1990 Arrival Date: 11/03/2022 Time: 13:52 Bed 15 Private MD: Antonio Ivey ED Physician Suraj Ortega HPI: 11/03 17:03 This 31 yrs old Female presents to ER via Ambulatory with complaints of Chest Pain. rt 17:03 Patient presents to the ED with a chest pain, nonradiating, pressure-like in nature rt with associated shortness of breath starting this morning when she woke up at about 8:00. She denies nausea, lightheadedness. Denies other acute complaints at this time. Symptoms are moderate severity, no other aggravating or elevating factors.. Historical: - Allergies: 14:38 No Known Allergies; ld1 - Home Meds: 14:38 None [Active]; ld1 - PMHx: 14:38 None; ld1 - PSHx: 14:38 c section X4; ld1 - Immunization history:: Adult Immunizations up to date, Client reports receiving the 2nd dose of the Covid vaccine. - Social history:: Smoking status: Patient denies any tobacco usage or history of. Patient/guardian denies using alcohol. - Family history:: not pertinent. ROS: 17:03 Constitutional: Negative for fever, chills, and weight loss, Abdomen/GI: Negative for rt abdominal pain, nausea, vomiting, diarrhea, and constipation, MS/Extremity: Negative for injury and deformity, Skin: Negative for injury, rash, and discoloration, Neuro: Negative for headache, weakness, numbness, tingling, and seizure, Psych: Negative for depression, anxiety, suicide ideation, homicidal ideation, and hallucinations. 17:03 Cardiovascular: Positive for chest pain, Negative for edema. 17:03 Respiratory: Positive for shortness of breath, Negative for cough. Exam: 17:03 Constitutional: This is a well developed, well nourished patient who is awake, alert, rt and in no acute distress. Chest/axilla: Normal chest wall appearance and motion. Nontender with no deformity. No lesions are appreciated. Cardiovascular: Regular rate and rhythm with a normal S1 and S2. No gallops, murmurs, or rubs. Normal PMI, no JVD. No pulse deficits. Respiratory: Lungs have equal breath sounds bilaterally, clear to auscultation and percussion. No rales, rhonchi or wheezes noted. No increased work of breathing, no retractions or nasal flaring. Abdomen/GI: Soft, non-tender, with normal bowel sounds. No distension or tympany. No guarding or rebound. No evidence of tenderness throughout. Skin: Warm, dry with normal turgor. Normal color with no rashes, no lesions, and no evidence of cellulitis. MS/ Extremity: Pulses equal, no cyanosis. Neurovascular intact. Full, normal range of motion. Neuro: Awake and alert, GCS 15, oriented to person, place, time, and situation. Cranial nerves II-XII grossly intact. Motor strength 5/5 in all extremities. Sensory grossly intact. Cerebellar exam normal. Normal gait. Psych: Awake, alert, with orientation to person, place and time. Behavior, mood, and affect are within normal limits. 17:03 ECG was reviewed by the Attending Physician. Vital Signs: 14:37 BP 107 / 67; Pulse 66; Resp 18; Temp 98.3(O); Pulse Ox 100% on R/A; Weight 49.9 kg; ld1 Height 5 ft. 4 in. ; Pain 7/10; 15:52 BP 108 / 64; Pulse 64; Resp 18; Pulse Ox 100% on R/A; ld1 14:37 Body Mass Index 18.88 (49.90 kg, 162.56 cm) ld1 14:37 Pain Scale: Adult ld1 MDM: 14:23 Patient medically screened. rt 17:06 Differential diagnosis: GA, pneumonia, pneumothorax, pulmonary embolism, bronchospasm. rt HEART Score: History: Slightly Suspicious (0), ECG: Normal (0), Age: < or = 45 years (0), Risk Factors: No Risk Factors Known (0), Troponin: < or = 1 x Normal Limit (0), Total Score = 0. Data reviewed: vital signs, nurses notes, lab test result(s), EKG, radiologic studies. Consideration of Admission/Observation Escalation of care including admission/observation considered. Heart score is 0, D-dimer is negative, EKG is unremarkable,, given chronicity of symptoms, 1 set of enzymes is sufficient to rule out acute coronary syndrome. Stable for outpatient care.. I considered the following discharge prescriptions or medication management in the emergency department Medications were administered in the Emergency Department. See MAR. Independent interpretation of the following test(s) in the Emergency Department X-Ray: My interpretation is No pneumothorax seen on interpretation of the x-ray images. Test considered but Not performed: CT: D-dimer negative, low suspicion for PE, CT angiogram not indicated.. Counseling: I had a detailed discussion with the patient and/or guardian regarding: the historical points, exam findings, and any diagnostic results supporting the discharge/admit diagnosis, lab results, radiology results, the need for outpatient follow up, to return to the emergency department if symptoms worsen or persist or if there are any questions or concerns that arise at home. 11/03 14:29 Order name: Basic Metabolic Panel; Complete Time: 15:34 rt 11/03 14:29 Order name: CBC with Diff; Complete Time: 15:34 rt 11/03 14:29 Order name: LFT's; Complete Time: 15:34 rt 11/03 14:29 Order name: NT PRO-BNP; Complete Time: 15:34 rt 11/03 14:29 Order name: Troponin HS; Complete Time: 15:34 rt 11/03 14:29 Order name: D-Dimer; Complete Time: 15:34 rt 11/03 14:29 Order name: XRAY Chest (1 view); Complete Time: 15:59 rt 11/03 14:29 Order name: EKG; Complete Time: 14:30 rt 11/03 14:29 Order name: Cardiac monitoring; Complete Time: 14:39 rt 11/03 14:29 Order name: EKG - Nurse/Tech; Complete Time: 14:40 rt 11/03 14:29 Order name: IV Saline Lock; Complete Time: 14:40 rt 11/03 14:29 Order name: Labs collected and sent; Complete Time: 14:40 rt 11/03 14:29 Order name: O2 Per Protocol; Complete Time: 14:40 rt 11/03 14:29 Order name: O2 Sat Monitoring; Complete Time: 14:40 rt EC:03 Rate is 50 beats/min. Rhythm is regular, Sinus bradycardia with No ectopy. QRS Paia is rt Normal. ND interval is normal. QRS interval is normal. QT interval is normal. No Q waves. T waves are Normal. No ST changes noted. Interpreted by me. Administered Medications: 14:47 Drug: Aspirin PO Chewable Tablet 324 mg Route: PO; ld1 17:28 Follow up: Response: No adverse reaction ld1 14:47 Drug: Nitroglycerin Sublingual 0.4 mg Route: Sublingual; ld1 17:29 Follow up: Response: No adverse reaction ld1 17:28 Drug: Ketorolac IVP 15 mg Route: IVP; Site: right antecubital; ld1 Disposition Summary: 11/03/22 16:25 Discharge Ordered Location: Home rt Problem: new rt Symptoms: are unchanged rt Condition: Stable rt Diagnosis - Chest pain, unspecified rt Followup: rt - With: Lion Martínez MD - When: 2 - 3 days - Reason: Discharge Instructions: - Discharge Summary Sheet rt - Nonspecific Chest Pain, Adult rt Forms: - Work release form rt - Medication Reconciliation Form rt - Thank You Letter rt - Antibiotic Education rt - Prescription Opioid Use rt Signatures: Dispatcher [employer] EDEdda Quan RN RN ld1 Suraj Ortega MD MD rt Corrections: (The following items were deleted from the chart) 14:38 14:38 PMHx: Unable to Obtain; ld1 ld1
--- NOTE | 2022-11-03 16:26 | ER ---
Nurse's Notes [facility] Name: Karen Bunn Age: 31 yrs Sex: Female : 1990 Arrival Date: 11/03/2022 Time: 13:52 Bed 15 Private MD: Antonio Ivey Diagnosis: Chest pain, unspecified Presentation: 11/03 14:37 Chief complaint: Patient states: Chest pain since this morning. Pt reports having panic ld1 attack this morning. Coronavirus screen: At this time, the client does not indicate any symptoms associated with coronavirus-19. Ebola Screen: No symptoms or risks identified at this time. Initial Sepsis Screen: Does the patient meet any 2 criteria? No. Patient's initial sepsis screen is negative. Does the patient have a suspected source of infection? No. Patient's initial sepsis screen is negative. Risk Assessment: Do you want to hurt yourself or someone else? Patient reports no desire to harm self or others. Onset of symptoms was November 03, 2022. 14:37 Method Of Arrival: Ambulatory ld1 14:37 Acuity: CARLOS 3 ld1 Triage Assessment: 14:38 General: Appears in no apparent distress. comfortable, Behavior is calm, cooperative, ld1 appropriate for age. Pain: Complains of pain in chest Pain does not radiate. Pain currently is 7 out of 10 on a pain scale. Quality of pain is described as throbbing. EENT: No signs and/or symptoms were reported regarding the EENT system. Neuro: Level of Consciousness is awake, alert, obeys commands, Oriented to person, place, time, situation. Cardiovascular: Capillary refill < 3 seconds Patient's skin is warm and dry. Rhythm is sinus bradycardia. Respiratory: Airway is patent Respiratory effort is even, unlabored. GI: Abdomen is flat, non-distended. : No signs and/or symptoms were reported regarding the genitourinary system. Derm: No signs and/or symptoms reported regarding the dermatologic system. Musculoskeletal: No signs and/or symptoms reported regarding the musculoskeletal system. Historical: - Allergies: 14:38 No Known Allergies; ld1 - Home Meds: 14:38 None [Active]; ld1 - PMHx: 14:38 None; ld1 - PSHx: 14:38 c section X4; ld1 - Immunization history:: Adult Immunizations up to date, Client reports receiving the 2nd dose of the Covid vaccine. - Social history:: Smoking status: Patient denies any tobacco usage or history of. Patient/guardian denies using alcohol. - Family history:: not pertinent. Screenin:39 [facility] ED Fall Risk Assessment (Adult) History of falling in the last 3 months, ld1 including since admission No falls in past 3 months (0 pts). Abuse screen: Denies threats or abuse. Denies injuries from another. Nutritional screening: No deficits noted. Tuberculosis screening: No symptoms or risk factors identified. Assessment: 14:39 Reassessment: See triage assessmnet. Pain: Complains of pain in chest Pain began 4 ld1 hours ago. Vital Signs: 14:37 BP 107 / 67; Pulse 66; Resp 18; Temp 98.3(O); Pulse Ox 100% on R/A; Weight 49.9 kg; ld1 Height 5 ft. 4 in. ; Pain 7/10; 15:52 BP 108 / 64; Pulse 64; Resp 18; Pulse Ox 100% on R/A; ld1 14:37 Body Mass Index 18.88 (49.90 kg, 162.56 cm) ld1 14:37 Pain Scale: Adult ld1 ED Course: 13:54 Patient arrived in ED. im 13:54 Antonio Ivey DO is Private Physician. im 14:23 Suraj Ortega MD is Attending Physician. rt 14:37 Edda Talbert, АНДРЕЙ is Primary Nurse. ld1 14:38 Triage completed. ld1 14:38 Arm band placed on right wrist. EKG completed in triage. Results shown to MD. ld1 14:39 Patient has correct armband on for positive identification. Placed in gown. Bed in low ld1 position. Call light in reach. Side rails up X2. nurse monitoring on. Pulse ox on. NIBP on. Door closed. Noise minimized. Warm blanket given. 14:39 No provider procedures requiring assistance completed. Inserted saline lock: 20 gauge ld1 in right antecubital area, using aseptic technique. Blood collected. Patient maintains SpO2 saturation greater than 95% on room air. 15:47 XRAY Chest (1 view) In Process Unspecified. EDMS 16:25 Lion Martínez MD is Referral Physician. rt 17:38 IV discontinued, intact, bleeding controlled, No redness/swelling at site. ld1 Administered Medications: 14:47 Drug: Aspirin PO Chewable Tablet 324 mg Route: PO; ld1 17:28 Follow up: Response: No adverse reaction ld1 14:47 Drug: Nitroglycerin Sublingual 0.4 mg Route: Sublingual; ld1 17:29 Follow up: Response: No adverse reaction ld1 17:28 Drug: Ketorolac IVP 15 mg Route: IVP; Site: right antecubital; ld1 Medication: 14:39 VIS not applicable for this client. ld1 Outcome: 16:25 Discharge ordered by . rt 17:37 Discharged to home ambulatory. ld1 17:37 Condition: stable 17:37 Discharge instructions given to patient, Instructed on discharge instructions, follow up and referral plans. Demonstrated understanding of instructions, follow-up care. 17:38 Patient left the ED. ld1 Signatures: Dispatcher [employer] EDMS Edda Talbert RN RN ld1 Suraj Ortega MD MD rt Ally Rain Corrections: (The following items were deleted from the chart) 14:38 14:38 PMHx: Unable to Obtain; ld1 ld1
[2022-11-03] MEDS ORDERED: KETOROLAC 30 MG/ML INJ ONE (17:42)
[2022-11-03 18:12] VITALS: TEMP 98.3; O2SAT 100
[2022-11-03 18:14] VITALS: BP 108/64
--- NOTE | 2022-11-05 14:25 | EKG ---
Test Date: 2022-11-03 Test Time: 14:28:18 Pharmacy Student: Antonia Wolf MEASUREMENT RESULTS: Intervals: Rate: 50 TN: 128 QRSD: 84 QT: 422 QTc: 384 [place]: P: 33 TN: 128 QRS: 67 T: 34 INTERPRETIVE STATEMENTS: Sinus bradycardia Otherwise normal ECG Compared to ECG 03/14/2022 19:54:05 Sinus rhythm no longer present Electronically Signed On 11-05-22 14:22:27 CDT by Lion Martínez
== END 2022-11-03 17:38 | disposition home or self-care (01) ==
LOC: ER 13:52
DX: R07.89 Other chest pain (principal); R06.02 Shortness of breath
CPT/HCPCS: 36415; 71045; 80048; 80076; 83880; 84484; 85025; 85379; 93005; 96374; 99285

== ENCOUNTER 2023-09-02 18:35 | Emergency (ER) | payer OTHER ==
--- NOTE | 2023-09-02 19:43 | RAD REPORT ---
EXAM DESCRIPTION: CT - [id number] - 09/02/2023 7:29 pm CLINICAL HISTORY: Headache;Dizziness COMPARISON: Head C Spine Mpr Wo Con dated 09/04/2021 TECHNIQUE: Axial 5 mm thick images of the head were obtained. Axial 2 mm thick images of the cervical spine were obtained with sagittal and coronal reconstruction images generated and reviewed. All CT scans are performed using dose optimization technique as appropriate and may include automated exposure control or mA/KV adjustment according to patient size. FINDINGS: CT HEAD WITHOUT CONTRAST: No acute hemorrhage, hydrocephalus or extra-axial collection is identified.No areas of brain edema or midline shift. Mild circumferential thickening involving the maxillary sinuses as well several of the ethmoid air ce lls. The calvarium is intact. CT CERVICAL SPINE WITHOUT CONTRAST: No fracture or subluxation.No prevertebral soft tissues swelling is identified. IMPRESSION: No acute intracranial or cervical spine findings.
--- NOTE | 2023-09-02 19:47 | ER ---
Nurse's Notes [facility] Name: Karen Bunn Age: 32 yrs Sex: Female : 1990 Arrival Date: 09/02/2023 Time: 18:35 Bed 9 Private MD: Diagnosis: Unspecified injury of head, initial encounter;Laceration without foreign body of scalp Presentation: 09/01 18:53 Chief complaint: Patient states: Fell off bed and hit wall at 5 AM. L posterior scalp ll1 was bleeding, SHANNON, nausea since. Coronavirus screen: Client denies travel out of the [place] in the last 14 days. At this time, the client does not indicate any symptoms associated with coronavirus-19. Ebola Screen: Patient denies travel to an Ebola-affected area in the 21 days before illness onset. Mechanism of Injury: The problem was sustained at home, resulted from a direct blow. Initial Sepsis Screen: Does the patient meet any 2 criteria? No. Patient's initial sepsis screen is negative. Does the patient have a suspected source of infection? No. Patient's initial sepsis screen is negative. Risk Assessment: Do you want to hurt yourself or someone else? Patient reports no desire to harm self or others. Onset of symptoms was September 02, 2023. 18:53 Method Of Arrival: Ambulatory ll1 18:53 Acuity: CARLOS 3 ll1 Triage Assessment: 18:55 General: Appears uncomfortable, Behavior is calm, cooperative, appropriate for age. ll1 Pain: Complains of pain in head Pain currently is 7 out of 10 on a pain scale. Quality of pain is described as aching. Neuro: Reports headache. Derm: Reports <3 cm laceration to back of head, bleeding controlled. Historical: - Allergies: 18:53 No Known Allergies; ll1 - Home Meds: 18:53 Iron CR Oral [Active]; ll1 - PMHx: 18:53 None; ll1 - PSHx: 18:53 c section X4; ll1 - Immunization history:: Adult Immunizations. - Infectious Disease History:: Denies. - Social history:: Smoking status: Reported history of juuling and/or vaping. Screenin:06 [facility] ED Fall Risk Assessment (Adult) History of falling in the last 3 months, tm6 including since admission Yes- single mechanical fall (1 pt) Confusion or Disorientation No (0 pts) Intoxicated or Sedated No (0 pts) Impaired Gait No (0 pts) Mobility Assist Device Used No (0 pt) Altered Elimination No (0 pt) Score/Fall Risk Level 0 - 2 = Low Risk Oriented to surroundings, Maintained a safe environment, Educated pt \T\ family on fall prevention, incl call for assistance when getting out of bed. Abuse screen: Denies threats or abuse. Denies injuries from another. Nutritional screening: No deficits noted. Tuberculosis screening: No symptoms or risk factors identified. Assessment: 19:06 General: Appears in no apparent distress. Behavior is calm, cooperative. Pain: tm6 Complains of pain in face Pain currently is 6 out of 10 on a pain scale. Quality of pain is described as aching. Neuro: Level of Consciousness is awake, alert, obeys commands, Oriented to person, place, time, situation, Reports headache since fall this morning. Cardiovascular: No deficits noted. Patient's skin is warm and dry. Respiratory: Airway is patent Respiratory effort is even, unlabored, Respiratory pattern is regular, symmetrical. GI: No signs and/or symptoms were reported involving the gastrointestinal system. Abdomen is flat, non-distended. : No signs and/or symptoms were reported regarding the genitourinary system. EENT: No signs and/or symptoms were reported regarding the EENT system. Derm: Wound noted top of head Wound is small wound from fall this morning. No longer bleeding. Small amount of dried blood in hair. Reports pain that is 6 out of 10 on a pain scale. Musculoskeletal: No signs and/or symptoms reported regarding the musculoskeletal system. 20:06 Reassessment: Patient appears in no apparent distress at this time. Patient is alert, tm6 oriented x 3, equal unlabored respirations, skin warm/dry/pink. Vital Signs: 18:53 BP 114 / 68; Pulse 75; Resp 16; Temp 97.2; Pulse Ox 99% ; Weight 58.97 kg; Height 5 ft. ll1 3 in. ; Pain 7/10; 20:05 BP 104 / 58; Pulse 65; Resp 19; Temp 98(TE); Pulse Ox 98% on R/A; Pain 4/10; tm6 18:53 Body Mass Index 23.03 (58.97 kg, 160.02 cm) ll1 18:53 Pain Scale: Adult ll1 20:05 Pain Scale: Adult tm6 [place] Coma Score: 18:53 Eye Response: spontaneous(4). Motor Response: obeys commands(6). Verbal Response: ll1 oriented(5). Total: 15. 09/02 00:13 Eye Response: spontaneous(4). Motor Response: obeys commands(6). Verbal Response: kb oriented(5). Total: 15. ED Course: 09/01 18:37 Patient arrived in ED. rg4 18:43 Devora Horn FNP-C [facility]. kb 18:43 Suraj Ortega MD is Attending Physician. kb 18:53 Arm band placed on Patient placed in an exam room, on a stretcher. ll1 18:55 Triage completed. ll1 19:01 Petty Monge, RN is Primary Nurse. tm6 19:06 Patient has correct armband on for positive identification. Placed in gown. Bed in low tm6 position. Call light in reach. Side rails up X 1. Provided Education on: plan of care. Client placed on continuous cardiac and pulse oximetry monitoring. NIBP monitoring applied. Pulse ox on. NIBP on. Door closed. Noise minimized. PO fluids given. 19:31 CT Head C Spine In Process Unspecified. EDMS 20:06 No provider procedures requiring assistance completed. Patient did not have IV access tm6 during this emergency room visit. Administered Medications: 20:03 Drug: Boostrix Tdap IM 0.5 ml IM once; as a single dose Route: IM; Site: right deltoid; tm6 Medication: 19:06 VIS not applicable for this client. tm6 Outcome: 19:46 Discharge ordered by . kb 20:06 Discharged to home ambulatory, with family, tm6 20:06 Condition: stable 20:06 Discharge instructions given to patient, family, Instructed on discharge instructions, follow up and referral plans. Demonstrated understanding of instructions, follow-up care, 20:07 Patient left the ED. tm6 Signatures: Dispatcher [employer] EDMI Devora Horn FNP-C FNP-Ckb Garcia, Rubi rg4 Elizabeth Vinson RN RN 1 Petty Monge RN RN tm6
--- NOTE | 2023-09-02 19:47 | EDPHYS ---
Physician Documentation [facility] Name: Karen Bunn Age: 32 yrs Sex: Female : 1990 Arrival Date: 09/02/2023 Time: 18:35 Bed 9 Private MD: ED Physician Suraj Ortega HPI: 09/02 00:13 This 32 yrs old Female presents to ER via Ambulatory with complaints of Head kb Injury-Adult. 00:13 Patient is a 32-year-old female who presents for headache, dizziness that started after kb she fell out of the bed and hit her head on the edge of the wall at 5 AM. Denies LOC. States has been having the symptoms all day so she wanted to make sure everything was okay.. Historical: - Allergies: 09/01 18:53 No Known Allergies; ll1 - Home Meds: 18:53 Iron CR Oral [Active]; ll1 - PMHx: 18:53 None; ll1 - PSHx: 18:53 c section X4; ll1 - Immunization history:: Adult Immunizations. - Infectious Disease History:: Denies. - Social history:: Smoking status: Reported history of juuling and/or vaping. ROS: 09/02 00:11 Constitutional: As per HPI kb Exam: 00:11 Constitutional: This is a well developed, well nourished patient who is awake, alert, kb and in no acute distress. Eyes: Pupils equal round and reactive to light, extra-ocular motions intact. Lids and lashes normal. Conjunctiva and sclera are non-icteric and not injected. Cornea within normal limits. Periorbital areas with no swelling, redness, or edema. ENT: Moist Mucous membranes Cardiovascular: Regular rate Respiratory: Respirations even and unlabored. No increased work of breathing. Talking in full sentences Abdomen/GI: Soft, non-tender. No distention Back: No spinal tenderness. No costovertebral tenderness. Full range of motion. Skin: Warm, dry with normal turgor. Normal color. MS/ Extremity: Pulses equal, no cyanosis. Neurovascular intact. Full, normal range of motion. Neuro: Awake and alert, GCS 15, oriented to person, place, time, and situation. Moves all extremities. Normal gait. 00:11 Head/face: Noted is no obvious of injury or deformity except a laceration(s), that is superficial, that is linear, 3 cm(s), of the left side of the back of head, 00:11 Neck: C-spine: vertebral tenderness, that is mild, appreciated at C2, C3 and C4, Vital Signs: 09/01 18:53 BP 114 / 68; Pulse 75; Resp 16; Temp 97.2; Pulse Ox 99% ; Weight 58.97 kg; Height 5 ft. ll1 3 in. ; Pain 7/10; 20:05 BP 104 / 58; Pulse 65; Resp 19; Temp 98(TE); Pulse Ox 98% on R/A; Pain 4/10; tm6 18:53 Body Mass Index 23.03 (58.97 kg, 160.02 cm) ll1 18:53 Pain Scale: Adult ll1 20:05 Pain Scale: Adult tm6 [place] Coma Score: 18:53 Eye Response: spontaneous(4). Motor Response: obeys commands(6). Verbal Response: ll1 oriented(5). Total: 15. 09/02 00:13 Eye Response: spontaneous(4). Motor Response: obeys commands(6). Verbal Response: kb oriented(5). Total: 15. MDM: 09/01 18:43 Patient medically screened. kb 09/02 00:13 Differential diagnosis: Contusion of Hematoma on Laceration of Intracranial bleed- kb Concussion without LOC. Data reviewed: vital signs, nurses notes. Counseling: I had a detailed discussion with the patient and/or guardian regarding the historical points, exam findings, and any diagnostic results supporting the discharge/admit diagnosis, radiology results, the need for outpatient follow up, a family practitioner, to return to the emergency department if symptoms worsen or persist or if there are any questions or concerns that arise at home. 09/01 18:56 Order name: CT Head C Spine; Complete Time: 19:46 kb Administered Medications: 09/01 20:03 Drug: Boostrix Tdap IM 0.5 ml IM once; as a single dose Route: IM; Site: right deltoid; tm6 Disposition Summary: 09/02/23 19:46 Discharge Ordered Notes: Location: Home kb Condition: Stable kb Diagnosis - Unspecified injury of head, initial encounter kb - Laceration without foreign body of scalp kb Followup: kb - With: Emergency Department - When: As needed - Reason: Worsening of condition Followup: kb - With: Private Physician - When: 2 - 3 days - Reason: Recheck today's complaints, Continuance of care, Re-evaluation by your physician Discharge Instructions: - Discharge Summary Sheet kb - Laceration Care, Adult, [id number] kb - Head Injury, Adult, [id number] kb Forms: - Work release form kb - Medication Reconciliation Form kb - Thank You Letter kb - Antibiotic Education kb - Prescription Opioid Use kb - Patient Portal Instructions kb - Leadership Thank You Letter kb Signatures: Dispatcher [employer] EDDevora Anderson, TRANSPORTATION INSPECTOR-C TRANSPORTATION INSPECTOR-Elizabeth Woodruff, RN RN ll1 Petty Monge RN RN tm6
[2023-09-02] MEDS ORDERED: TDAP (DIPHTH,PERTUSS(ACELL),TET VAC) 0.5 ML VIAL IMVAC ONE (19:55)
[2023-09-02 20:35] VITALS: BP 104/58; TEMP 98; O2SAT 98
== END 2023-09-02 20:07 | disposition home or self-care (01) ==
LOC: ER 18:35
DX: S01.01XA Laceration without foreign body of scalp, initial encounter (principal)
CPT/HCPCS: 70450; 72125; 96372; 99284

== ENCOUNTER 2023-11-16 16:53 | Emergency (ER) | payer OTHER ==
--- NOTE | 2023-11-16 18:09 | RAD REPORT ---
EXAM DESCRIPTION: RAD - Ankle Left 3 View -11/16/2023 5:53 pm CLINICAL HISTORY: Left ankle pain status post injury FINDINGS: Nondisplaced lateral malleolar fracture No dislocation seen
[2023-11-16] MEDS ORDERED: HYDROCODONE/APAP 7.5/325 MG TAB ONE (19:23)
--- NOTE | 2023-11-16 19:36 | EDPHYS ---
Physician Documentation [facility] Name: Karen Bunn Age: 32 yrs Sex: Female : 1990 Arrival Date: 11/16/2023 Time: 16:53 Bed DX3 Private MD: ED Physician Ayad Appiah HPI: 11/15 18:00 This 32 yrs old Female presents to ER via Wheelchair with complaints of Ankle Injury. cp 18:00 The patient presents with an injury, pain, that is acute. The complaints affect the cp left ankle. Onset: The symptoms/episode began/occurred yesterday. Context: The patient can partially bear weight on the affected extremity. the patient is able to ambulate, with moderate difficulty, resulted from accident after sliding down slide. Associated signs and symptoms: The patient has no apparent associated signs or symptoms. 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 - Infectious Disease History:: Denies. - Social history:: Smoking status: Reported history of juuling and/or vaping. ROS: 18:05 MS/extremity: Positive for pain, of the left ankle, Negative for decreased range of cp motion, deformity, paresthesias, 18:05 Constitutional: HX per HPI cp 18:05 Constitutional: Negative for fever, 18:05 Neck: Negative for pain with movement, pain at rest, 18:05 Respiratory: Negative for cough, shortness of breath, wheezing, 18:05 Abdomen/GI: Negative for abdominal pain, nausea, vomiting, and diarrhea, 18:05 Back: Negative for pain at rest, pain with movement, 18:05 All other systems are negative, Exam: 18:10 Constitutional: The patient appears in no acute distress, alert, awake, non-toxic, well cp developed, well nourished, uncomfortable, 18:10 Head/Face: Normocephalic, atraumatic. cp 18:10 Neck: ROM/movement: is normal, is supple, without pain, no range of motions limitations, 18:10 Chest/axilla: Inspection: normal, 18:10 Cardiovascular: Rate: normal, Pulses: Pulses are 2+ in left dorsalis pedis artery. 18:10 Back: pain, is absent, ROM is normal, 18:10 Musculoskeletal/extremity: Extremities: grossly normal except: noted in the left ankle: pain, swelling and tenderness lateral malleolus. Achilles tendon palpated and intact, no pain to palpation noted proximal left fibula and or base of left fifth metatarsal, Vital Signs: 17:00 BP 126 / 64; Pulse 75; Resp 16; Temp 97.7; Pulse Ox 99% on R/A; Weight 58.97 kg; Height ll1 5 ft. 3 in. ; Pain 7/10; 17:00 Body Mass Index 23.03 (58.97 kg, 160.02 cm) ll1 17:00 Pain Scale: Adult ll1 Procedures: 20:20 Splinting: Splint applied to left ankle using Orthoglass splint, applied by nurse. cp Examined by me, post splint application: neurovascular intact, Patient tolerated well. MDM: 17:06 Patient medically screened. cp 18:30 Differential diagnosis: fracture, sprain, Achilles tendon rupture, foot fracture. cp 19:35 Data reviewed: vital signs, nurses notes, radiologic studies, plain films. cp 19:35 I considered the following discharge prescriptions or medication management in the emergency department Medications were administered in the Emergency Department. See MAR. Independent interpretation of the following test(s) in the Emergency Department X-Ray: My interpretation is images of left ankle show distal left fibula fracture. Counseling: I had a detailed discussion with the patient and/or guardian regarding the historical points, exam findings, and any diagnostic results supporting the discharge/admit diagnosis, radiology results, the need for outpatient follow up, for definitive care, a orthopedic surgeon, to return to the emergency department if symptoms worsen or persist or if there are any questions or concerns that arise at home. Response to treatment: the patient's symptoms have markedly improved after treatment, and as a result, I will discharge patient. 11/15 17:03 Order name: Ankle Left 3 View XRAY; Complete Time: 19:34 ll1 11/15 18:10 Order name: Splint: short leg with stirrup; Complete Time: 20:01 cp Administered Medications: 19:25 Drug: Hydrocodone-Acetaminophen PO (7.5 mg-325 mg) 1 tabs PO once; RASS on ADMIN: cm10 Combtv4, Very Agttd3, Agttd2, Rstlss1, AlertClm0, Drwsy-1, Lt Sdtn-2, Mod Sdtn-3, Dp Sdtn-4, UnArsble-5 {Note: RASS: AlertCLM0.} Route: PO; 20:12 Follow up: Response: No adverse reaction cm10 Disposition: 11/16 19:02 Co-signature as Attending Physician, Ayad Appiah MD I reviewed the patient's care rn provided by the Advanced Practice Provider and agree with the diagnosis and treatment plan. Disposition Summary: 11/16/23 19:36 Discharge Ordered Notes: Location: Home cp Problem: new cp Symptoms: have improved cp Condition: Stable cp Diagnosis - Nondisplaced Lateral Malleolus Fracture of Left Ankle cp Followup: cp - With: Paul Holly MD - When: 1 week - Reason: Recheck today's complaints Discharge Instructions: - Discharge Summary Sheet cp - Ankle Fracture cp - Form - Excuse from Work, School, or Physical Activity cp Forms: - Medication Reconciliation Form cp - Antibiotic Education cp - Prescription Opioid Use cp - Patient Portal Instructions cp - Leadership Thank You Letter cp Prescriptions: - acetaminophen-codeine 300-30 mg Oral tablet - take 2 tablet ORAL route every 8 hours as needed for pain; 16 tablet; Refills: cp 0, Product Selection Permitted - Ibuprofen 600 mg Oral tablet - take 1 tablet ORAL route every 8 hours As needed take with food; 30 tablet; cp Refills: 0, Product Selection Permitted Signatures: Dispatcher [employer] EDMS Ayad Appiah MD MD rn Page, Corey, PA PA cp Elizabeth Vinson, RN RN ll1 Sadia Dupont RN RN cm10
--- NOTE | 2023-11-16 19:36 | ER ---
Nurse's Notes [facility] Name: Karen Bunn Age: 32 yrs Sex: Female : 1990 Arrival Date: 11/16/2023 Time: 16:53 Bed DX3 Private MD: Diagnosis: Nondisplaced Lateral Malleolus Fracture of Left Ankle Presentation: 11/15 17:00 Chief complaint: Patient states: L ankle pain after sliding down a slide and hitting it ll1 on the ground yesterday. Coronavirus screen: Client denies travel out of the [place] in the last 14 days. At this time, the client does not indicate any symptoms associated with coronavirus-19. Ebola Screen: Patient denies travel to an Ebola-affected area in the 21 days before illness onset. Initial Sepsis Screen: Does the patient meet any 2 criteria? No. Patient's initial sepsis screen is negative. Does the patient have a suspected source of infection? No. Patient's initial sepsis screen is negative. Risk Assessment: Do you want to hurt yourself or someone else? Patient reports no desire to harm self or others. Onset of symptoms was November 15, 2023. 17:00 Method Of Arrival: Wheelchair ll1 17:00 Acuity: CARLOS 4 ll1 Triage Assessment: 17:00 General: Appears uncomfortable, Behavior is calm, cooperative, appropriate for age. ll1 Pain: Complains of pain in L ankle. Musculoskeletal: Reports pain in L ankle. Injury Description: Bruise. 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 - Infectious Disease History:: Denies. - Social history:: Smoking status: Reported history of juuling and/or vaping. Screenin:[address] [facility] ED Fall Risk Assessment (Adult) History of falling in the last 3 months, cm10 including since admission Yes- single mechanical fall (1 pt) Confusion or Disorientation No (0 pts) Intoxicated or Sedated No (0 pts) Impaired Gait No (0 pts) Mobility Assist Device Used No (0 pt) Altered Elimination No (0 pt) Score/Fall Risk Level 0 - 2 = Low Risk Oriented to surroundings, Maintained a safe environment, Provided non-skid footwear. Abuse screen: Denies threats or abuse. Denies injuries from another. Nutritional screening: No deficits noted. Tuberculosis screening: No symptoms or risk factors identified. Assessment: 20:13 General: Appears in no apparent distress. comfortable, Behavior is calm, cooperative. cm10 Neuro: No deficits noted. Level of Consciousness is awake, alert, obeys commands, Oriented to person, place, time, situation. Respiratory: No deficits noted. Airway is patent Respiratory effort is even, unlabored, Respiratory pattern is regular, symmetrical. Vital Signs: 17:00 BP 126 / 64; Pulse 75; Resp 16; Temp 97.7; Pulse Ox 99% on R/A; Weight 58.97 kg; Height ll1 5 ft. 3 in. ; Pain 7/10; 17:00 Body Mass Index 23.03 (58.97 kg, 160.02 cm) ll1 17:00 Pain Scale: Adult ll1 ED Course: 16:56 Patient arrived in ED. im 16:57 Tobin Johnson PA is PHCP. cp 16:57 Ayad Appiah MD is Attending Physician. cp 17:01 Triage completed. ll1 17:01 Arm band placed on. ll1 17:55 Ankle Left 3 View XRAY In Process Unspecified. EDMS 19:35 Paul Holly MD is Referral Physician. cp 20:12 No provider procedures requiring assistance completed. Patient did not have IV access cm10 during this emergency room visit. Crutch training done. Orthoglass splint: Posterior short lleg splint applied on left leg. 20:14 Patient has correct armband on for positive identification. Provided Education on: cm10 Follow-up instructions. Administered Medications: 19:25 Drug: Hydrocodone-Acetaminophen PO (7.5 mg-325 mg) 1 tabs PO once; RASS on ADMIN: cm10 Combtv4, Very Agttd3, Agttd2, Rstlss1, AlertClm0, Drwsy-1, Lt Sdtn-2, Mod Sdtn-3, Dp Sdtn-4, UnArsble-5 {Note: RASS: AlertCLM0.} Route: PO; 20:12 Follow up: Response: No adverse reaction cm10 Medication: 20:14 VIS not applicable for this client. cm10 Outcome: 19:36 Discharge ordered by . cp 20:15 Discharged to home with crutches, with significant other, cm10 20:15 Condition: good 20:15 Discharge instructions given to patient, Instructed on discharge instructions, follow up and referral plans. medication usage, crutch walking, Demonstrated understanding of instructions, follow-up care, medications, splint care, Prescriptions given X 2, 20:15 Patient left the ED. cm10 Signatures: Dispatcher [employer] EDMS Tobin Johnson PA PA cp Lewis, Lynsay RN RN ll1 Ally Rain Clarissa RN RN cm10
[2023-11-16 20:45] VITALS: BP 126/64; TEMP 97.7; O2SAT 99
== END 2023-11-16 20:15 | disposition home or self-care (01) ==
LOC: ER 16:53
PROC: 2W3TX1Z Immobilization of Left Foot using Splint (ICD-10-PCS; principal; 2023-11-16)
DX: S82.65XA Nondisplaced fracture of lateral malleolus of left fibula, initial encounter for closed fracture (principal)
CPT/HCPCS: 99283

== ENCOUNTER 2024-04-02 23:41 | Emergency (ER) | payer OTHER ==
--- OUTSIDE RECORDS SUMMARY | 2024-04-02 23:43 | XMS REPORT | Continuity of Care Document ---
Author Name Unknown Address [address] [facility] [address] [place] [id number] [facility] thconnect Address [address] [facility] [address] [place] [address] Care Team Providers Care Chemical Engineer Name Role Phone PCP, PATIENT DOES NOT HAVE A Primary Care Physic ángel Unavailable JORGE MOE Attending Clinician Unavailable Jorge Moe MD Attending Clinician Unknown, Attending Attending Clinician Unavailab ORLANDO Ayon Attending Clinician Unavaila FER [place] Attending Clinician Unavailable LAB90 Attending Clinician Unavailable MARC DURAN Attending Clinician Unavailable Fer Ivey DO Attending Clinician [phone] Payers Payer Name Policy Type Policy Number Effective Date Expirati on Date Source PHCS GENERIC [id number] 2023 00:00:00 [employer]-ALLIED BENEFITS SYS/PPO 2 [id number] 2022 00:00:00 [employer]-ALLIED BNFT SYSTEM/* 2 [id number] 2021 00:00:00 Problems Condition Name Condition Details Condition Category Status Onset Date Resolution Date Last Treatment Date Treating Clinician Comments Source Iron deficiency anemia secondary to inadequate dietary iron intake Iron deficiency anemia secondary to inadequate dietary iron intake Disease Active 11-08 00:00: 00 Ene ramsey Screening for diabetes mellitus Screening for diabetes mellitus Disease Active 2021-05 00:00: 00 Ene ramsey Menorrhagi a with regular cycle Menorrhagi a with regular cycle Disease Active 2021-05 00:00: 00 Ene Aldrich - Externa l Other fatigue Other fatigue Disease Active 2021-05 00:00: 00 Ene Aldrich - Externa l Acute pain of right shoulder Acute pain of right shoulder Disease Active 10-11 00:00: 00 Ene Aldrich - Externa l Allergies, Adverse Reactions, Alerts Allergy Name Allergy Type Status Severity Reaction(s) Onset Date Inactive Date Treating Clinician Comments Source NO KNOWN ALLERGIE S Drug Class Active [facility] Social History Social Habit Start Date Stop Date Quantity Comments Source Gender identity 2022-03-15 11:43:27 Identifies as female gender (finding) Ene Aldrich - External Sexual orientation [facility] History SDOH Alcohol Binge Ene Aldrich - External History SDOH Alcohol Frequency Ene shell - External History SDOH Alcohol Std Drinks Ene german - External Alcohol intake 2022-11-08 00:00:00 2022-11-08 00:00:00 Ex-drinker (finding) Ene Aldrich - External Alcohol Comment 2022-03-23 00:00:00 2022-03-23 00:00:00 quit 5 weeks Ene Aldrich - External Education 2021-10-11 00:00:00 2021-10-11 00:00:00 16 Ene Aldrich - External Tobacco use and exposure 2021-10-11 00:00:00 2021-10-11 00:00:00 Smokeless tobacco non-user Ene Aldrich - External History of Social function 2021-10-11 00:00:00 2021-10-11 00:00:00 Ene Aldrich - External Sex assigned at 1990 00:00:00 1990 00:00:00 [facility] Smoking Status Start Date Stop Date Source Tobacco smoking consumption unknown [facility] Never smoked tobacco Ene Aldrich - External Medications Ordered Medication Name Filled Medication Name Start Date Stop Date Current Medication? Ordering Clinician Indication Dosage Frequency Signature (SIG) Comments Components Source ondansetron (ZOFRAN-ODT ) disintegrat ing tablet 8 mg 2023-05 00:45: 00 03-25 23:44 :00 No [id number] 8mg 8 mg, Oral, ONCE, 1 dose, On Sun03/25/24 at 1845, Routine [facility] ketorolac (TORADOL) injection 30 mg 2023-05 00:45: 00 03-25 23:46 :00 No [id number] 30mg 30 mg, Intramuscu lar, ONCE, 1 dose, On Sun03/25/24 at 1845, Routine [facility] ondansetron 4 mg disintegrat ing tablet 2023-05 00:00: 00 Yes [id number] 4mg Take 1 tablet by mouth every 12 (twelve) hours as needed for Nausea and Vomiting (N/V). [facility] acetaminoph en-caff-but albital (ESGIC) per capsule 2023-05 00:00: 00 Yes [id number] 1{capsu le} Take 1 capsule by mouth every 6 (six) hours as needed for Pain. [facility] Multiple Vitamins-Ir on (MULTIVITAM IN PLUS IRON ADULT OR) 11-08 11:22: 26 Yes 1{each} Take 1 each by mouth daily Ene ramsey Fluoxetine HCl 10 MG oral Capsule 11-08 00:00: 00 Yes [id number] 10mg Take 1 capsule (10 mg total) by mouth daily Ene ramsey Ferrous Sulfate (Iron) 325 (65 Fe) MG oral Tablet 2021-05 00:00: 00 Yes [id number] 325mg Take 1 tablet (325 mg total) by mouth daily (with breakfast) Ene ramsey Multiple Vitamins-Ir on (MULTIVITAM IN PLUS IRON ADULT OR) 2021-05 09:17: 53 Yes 1{each} Take 1 each by mouth daily Ene ramsey Oseltamivir Phosphate 75 MG oral Capsule 2021-05 00:00: 00 03-23 00:00 :00 No Ene ramsey Meloxicam 15 MG oral Tablet 10-11 00:00: 00 03-23 00:00 :00 No [id number] 15mg QD Take 1 tablet (15 mg total) by mouth daily as needed for pain Ene ramsey Tizanidine HCl 2 MG oral Capsule 10-11 00:00: 00 03-23 00:00 :00 No [id number] 2mg Q.5D Take 1 capsule (2 mg total) by mouth as needed in the morning and 1 capsule (2 mg total) as needed in the evening for muscle spasms. Ene ramsey Vital Signs Vital Name Observation Time Observation Value Comments S berenice Systolic blood pressure 2024-03-25 23:15:00 106 mm[Hg] [facility] Diastolic blood pressure 2024-03-25 23:15:00 76 mm[Hg] [facility] Heart rate 2024-03-25 23:15:00 50 /min [facility] Body temperature 2024-03-25 23:15:00 36.56 Carmela [facility] Respiratory rate 2024-03-25 23:15:00 18 /min [facility] Body weight 2024-03-25 23:15:[address] [facility] Oxygen saturation in Arterial blood by Pulse oximetry 2024-03-25 23:15:00 98 /min [facility] Systolic blood pressure 2022-11-08 16:21:00 102 mm[Hg] Ene kodi ld - External Diastolic blood pressure 2022-11-08 16:21:00 73 mm[Hg] Ene kodi ld - External Heart rate 2022-11-08 16:21:00 64 /min Kel y Semaxi - External Body temperature 2022-11-08 16:21:00 36.17 Carmela Ene burkewalker - External Respiratory rate 2022-11-08 16:21:00 14 /min Ene Aldrich - External Body height 2022-11-08 16:21:00 160 cm Shonna ey Seybold - External Body weight 2022-11-08 16:21:00 55.52 kg Shonna ey Seybold - External BMI 2022-11-08 16:21:00 21.68 kg/m2 Shonna ey ybold - External Oxygen saturation in Arterial blood by Pulse oximetry 2022-11-08 16:21:00 99 /min Ene ybo ld - External Systolic blood pressure 2022-03-23 15:08:00 110 mm[Hg] Ene Seybo ld - External Diastolic blood pressure 2022-03-23 15:08:00 73 mm[Hg] Ene Seybo ld - External Heart rate 2022-03-23 15:08:00 89 /min Kelse y Seybold - External Body temperature 2022-03-23 15:08:00 36.11 Carmela Ene Seybold - External Respiratory rate 2022-03-23 15:08:00 14 /min Ene Seybold - External Body height 2022-03-23 15:08:00 160 cm Shonna ey Seybold - External Body weight 2022-03-23 15:08:00 54.069 kg Shonna ey Seybold - External BMI 2022-03-23 15:08:00 21.12 kg/m2 Shonna ey Seybold - External Body height 2021-10-19 15:38:00 160 cm Shonna ey Seybold Body weight 2021-10-19 15:38:00 58.514 kg Shonna ey Seybold BMI 2021-10-19 15:38:00 22.85 kg/m2 Shonna ey Seybold Systolic blood pressure 2021-10-11 18:50:00 114 mm[Hg] Ene Seybo ld Diastolic blood pressure 2021-10-11 18:50:00 70 mm[Hg] Ene Seybo ld Heart rate 2021-10-11 18:50:00 98 /min Kelse y Seybold Body temperature 2021-10-11 18:50:00 36.78 Carmela Ene Seybold Respiratory rate 2021-10-11 18:50:00 14 /min Ene Seybold Body height 2021-10-11 18:50:00 160 cm Shonna ey Seybold Body weight 2021-10-11 18:50:00 58.514 kg Shonna ey Seybold BMI 2021-10-11 18:50:00 22.85 kg/m2 Shonna ey Seybold Procedures Procedure Date / Time Performed Performing Clinicia n Source POCT MOLECULAR FLU 2024-03-25 23:19:00 Unknown, Attend [facility] POCT SARS-COV-2 ANTIGEN (BINAX NOW) 2024-03-25 00:00:00 Sandra Nazario [facility] Encounters Start Date/Time End Date/Time Encounter Type Admission Type Attending [facility] Care Facility Care Department Encounter ID Source 2024-03-25 16:00:00 2024-03-25 18:04:12 Outpatient R BLAINEJORGE [facility] [id number] [facility] 2024-03-25 16:00:00 2024-03-25 16:20:00 Urgent Care Blaine Jorge Unknown, Attending [facility] [id number] [facility] 2022-12-13 10:00:00 2022-12-13 10:00:00 Outpatient ORLANDO RODRIGES [id number] E[facility] 2022-12-12 13:30:00 2022-12-12 13:30:00 Outpatient FER IVEY [id number] E[facility] 2022-11-17 00:00:00 2022-11-17 00:00:00 Outpatient FER IVEY [id number] Ene [facility] 2022-11-08 11:45:00 2022-11-08 11:45:00 Outpatient PREZAFER Wolf [id number] Ene [facility] 2022-11-08 00:00:00 2022-11-08 00:00:00 Outpatient PREZAFER Wolf [id number] Ene [facility] 2022-08-31 00:00:00 2022-08-31 00:00:00 Outpatient FER IVEY [id number] Ene [facility] 2022-03-31 00:00:00 2022-03-31 00:00:00 Outpatient PREFER BURGOS [id number] [facility] 2022-03-24 00:00:2022-03-24 00:00:00 Outpatient FER IVEY [id number] Ene Aldrich 2022-03-23 10:15:00 2022-03-23 10:15:00 Outpatient LAB90 ENE RASMUSSEN [id number] Ene Aldrich 2022-03-23 09:30:00 2022-03-23 09:30:00 Outpatient FER IVEY [id number] Ene Aldrich 2022-03-22 09:00:00 2022-03-22 09:00:00 Outpatient PREFER BURGOS [id number] Ene Aldrich 2021-10-19 10:30:00 2021-10-19 10:30:00 Office Visit MARC DURAN [id number] Ene Aldrich 2021-10-19 09:55:00 2021-10-19 09:55:00 Outpatient ENE RASMUSSEN [id number] Ene Aldrich 2021-10-11 14:00:00 2021-10-11 14:30:00 Office Visit Fer Ivey [id number] Ene Aldrich 2021-10-11 00:00:00 2021-10-11 00:00:00 Outpatient MARC DURAN [id number] [facility] Results Test Description Test Time Test Comments Results Result Co mments Source [facility] [id number] 23:30:49* Test Item Value Reference Range Interpretation Comme nts POCT Molecular FluA (test co de = 60908-8) Negative Negative POCT Molecular FluB (test co de = 27999-9) Negative Negative Lab Interpretation (test cod e = [id number]) Normal [facility]
[2024-04-03] MEDS ORDERED: LIDOCAINE 1% 20 ML MDV ONE ×2 (00:15→06:19)
[2024-04-03] MEDS ORDERED: KETOROLAC 30 MG/ML INJ ONE (00:16)
[2024-04-03 00:39] LABS: Absolute Eosinophils 0.2 K/uL (0-0.5); Absolute Lymphocytes (CBC) 1.5 K/uL (0.7-4.9); Absolute Monocytes 0.5 K/uL (0.1-1.3); Absolute Neutrophil 4.4 K/uL (1.8-8.0); Basophils % 0.5 % (0-1.3); Eosinophils % 3.7 % (0-4.4); Hemoglobin 12.8 g/dL (12.0-15.0); Lymphocytes % 22.9 % (15.3-44.8); MCH 28.6 pg (27.0-35.0); MCHC 33.7 g/dL (32.0-36.0); MCV 84.9 fL (80-100); MPV 7.8 fL (7.6-11.3); Monocytes % 7.3 % (3.3-12.3); Neutrophils % 65.6 % (41.7-73.7); Nucleated Red Blood Cells % 0.1 % (0-0); Platelets 289 thou/uL (152-406); RBC Red Blood Cell Count 4.47 M/uL (3.86-4.86); Red Cell Distribution Width 15.7 % (12.1-15.2)
[2024-04-03 00:49] LABS: ALT/SGPT < 14 U/L (13-56); AST/SGOT < 10 U/L (15-37); Albumin 4.2 g/dL (3.4-5.0); Albumin/Globulin Ratio 1.2 (1.1-1.8); Alkaline Phosphatase 58 U/L (45-117); Anion Gap 8.3 mEq/L (5.0-15.0); BUN Blood Urea Nitrogen 12 mg/dL (7-18); Bicarbonate 28 mEq/L (21-32); Bilirubin Total 0.2 mg/dL (0.2-1.0); Globulin 3.5 g/dL (2.3-3.5); Glomerular Filtration Rate 87 ml/min (=/>90); Glucose Level 118 mg/dL (74-106); Potassium 3.3 mEq/L (3.5-5.1); Protein, Total 7.7 g/dL (6.4-8.2); Sodium Level 140 mEq/L (136-145)
[2024-04-03] MEDS ORDERED: ONDANSETRON 4 MG (ODT) TAB ONE (01:18)
[2024-04-03] MEDS ORDERED: CODEINE 30MG/APAP 300MG TAB ONE (01:19)
[2024-04-03] MEDS ORDERED: ONDANSETRON 4 MG/2 ML VIAL ONE (02:42)
[2024-04-03] MEDS ORDERED: MORPHINE 4 MG/ML SYR ONE ×3 (02:42→05:15)
[2024-04-03 04:14] LABS: C-Reactive Protein < 2.90 mg/L (<3.00)
[2024-04-03] MEDS ORDERED: METHYLPREDNISOLONE 125 MG INJ ONE (04:33)
[2024-04-03] MEDS ORDERED: NA CHLORIDE 0.9% 250 ML ONE (04:34)
[2024-04-03] MEDS ORDERED: VANCOMYCIN 1 GM/VIAL ONE (04:34)
[2024-04-03] MEDS ORDERED: NA CHLORIDE 0.9% 100 ML ONE (04:34)
[2024-04-03] MEDS ORDERED: CEFEPIME 1 GM/VIAL ONE (04:35)
--- NOTE | 2024-04-03 06:00 | RAD REPORT ---
EXAM DESCRIPTION: Knee Left 3 View CLINICAL HISTORY: 33 years Female Deformity. COMPARISON: None. TECHNIQUE: 3 view study of the Left knee were performed. FINDINGS: No acute fracture seen. Normal bony mineralization. No erosive or lytic lesions seen. No definite joint effusion. IMPRESSION: No acute fracture or dislocation seen. Electronically signed by: Raya Doe MD 04/03/2024 12:36 AM [facility] Due to temporary technical issues with the PACS/[employer] reporting system, reports are being shelly d by the in-house radiologist without review as a courtesy to ensure prompt reporting the interpreting radiologist is fully responsible for the content of the report. Transcribed Date/Time: 04/03/2024 5:59 AM
--- NOTE | 2024-04-03 08:13 | ER ---
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 bm8 Coronavirus screen: At this time, the client does not indicate any symptoms associated with coronavirus-19. 00:00 Method Of Arrival: Ambulatory bm8 00:00 Ebola Screen: Patient negative for fever greater than or equal to 101.5 degrees bm8 Fahrenheit, and additional compatible Ebola Virus Disease symptoms Patient denies exposure to infectious person. Patient denies travel to an Ebola-affected area in the 21 days before illness onset. No symptoms or risks identified at this time. Initial Sepsis Screen: Does the patient meet any 2 criteria? No. Patient's initial sepsis screen is negative. Does the patient have a suspected source of infection? No. Patient's initial sepsis screen is negative. Risk Assessment: Do you want to hurt yourself or someone else? Patient reports no desire to harm self or others. Onset of symptoms was March 31, 2024. 00:00 Acuity: CARLOS 3 bm8 Triage Assessment: 00:00 General: Appears in no apparent distress. comfortable, Behavior is calm, cooperative, bm8 appropriate for age. Pain: Complains of pain in left knee Pain currently is 6 out of 10 on a pain scale. Quality of pain is described as pressure. 00:00 EENT: No deficits noted. Neuro: No deficits noted. Level of Consciousness is awake, bm8 alert, obeys commands, Oriented to person, place, time, situation, Appropriate for age. Cardiovascular: Denies chest pain, Capillary refill < 3 seconds in bilateral fingers Patient's skin is warm and dry. Respiratory: Airway is patent Respiratory effort is even, unlabored, Respiratory pattern is regular, symmetrical. GI: No signs and/or symptoms were reported involving the gastrointestinal system. : No signs and/or symptoms were reported regarding the genitourinary system. Derm: No signs and/or symptoms reported regarding the dermatologic system. Musculoskeletal: Swelling present in left knee Reports swelling to left knee since sunday. 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 - Infectious Disease History:: Denies. - Social history:: Smoking status: Patient denies any tobacco usage or history of. - Family history:: not pertinent. Screenin:32 [facility] ED Fall Risk Assessment (Adult) History of falling in the last 3 months, bm8 including since admission No falls in past 3 months (0 pts) Confusion or Disorientation No (0 pts) Intoxicated or Sedated No (0 pts) Impaired Gait Yes (1 pt) Mobility Assist Device Used No (0 pt) Altered Elimination No (0 pt) Score/Fall Risk Level 0 - 2 = Low Risk Oriented to surroundings, Maintained a safe environment, Educated pt \T\ family on fall prevention, incl call for assistance when getting out of bed, Assessed \T\ reinforced patient's understanding of fall precautions, Hourly rounding (assess needs \T\ fall precautionary measures) done, Used ambulatory aids as needed (educated on \T\ assisted with), Used gait belt as appropriate. Abuse screen: Denies threats or abuse. Nutritional screening: No deficits noted. Tuberculosis screening: No symptoms or risk factors identified. Assessment: 00:32 Reassessment: Patient appears in no apparent distress at this time. see triage bm8 assessment. 01:34 Reassessment: Patient appears in no apparent distress at this time. No changes from bm8 previously documented assessment. Patient and/or family updated on plan of care and expected duration. Pain level reassessed. Patient is alert, oriented x 3, equal unlabored respirations, skin warm/dry/pink. 04:08 Reassessment: Patient appears in no apparent distress at this time. Patient and/or bm8 family updated on plan of care and expected duration. Pain level reassessed. Patient is alert, oriented x 3, equal unlabored respirations, skin warm/dry/pink. pt consented for arthrocentisis Patient states feeling better. Patient states symptoms have improved. 06:16 Reassessment: Patient appears in no apparent distress at this time. Patient and/or bm8 family updated on plan of care and expected duration. Pain level reassessed. Musculoskeletal: Swelling present in left knee. 06:24 Reassessment: providers currently in room conducting arthrocentesis with ORTHO. bm8 07:30 Reassessment: Patient appears in no apparent distress at this time. Patient and/or ph family updated on plan of care and expected duration. Pain level reassessed. Patient is alert, oriented x 3, equal unlabored respirations, skin warm/dry/pink. 04/04 05:28 Reassessment: RECEIVED REPORT OF BLOOD CULTURE RESULT . AEROBIC POSITIVE AND GRAM ha1 POSITIVE. Vital Signs: 04/03 00:00 BP 122 / 74; Pulse 67; Resp 18; Temp 98.7; Pulse Ox 98% on R/A; Weight 61.23 kg; Height bm8 5 ft. 3 in. ; Pain 6/10; 01:34 BP 115 / 54; Pulse 56; Resp 18; Temp 98.7; Pulse Ox 99% ; Pain 6/10; bm8 04:08 BP 128 / 69; Pulse 68; Resp 17; Temp 98.7; Pulse Ox 98% ; Pain 2/10; bm8 06:16 BP 117 / 72; Pulse 64; Resp 18; Temp 98.7; Pulse Ox 99% ; Pain 4/10; bm8 07:30 BP 108 / 71; Pulse 68; Resp 18; Pulse Ox 100% on R/A; ph 08:30 BP 112 / 78; Pulse 69; Resp 16; Temp 98; Pulse Ox 100% on R/A; ph 00:00 Body Mass Index 23.91 (61.23 kg, 160.02 cm) bm8 00:00 Pain Scale: Adult bm8 01:34 Pain Scale: Adult bm8 04:08 Pain Scale: Adult bm8 06:16 Pain Scale: Adult bm8 [place] Coma Score: 00:32 Eye Response: spontaneous(4). Motor Response: obeys commands(6). Verbal Response: bm8 oriented(5). Total: 15. 01:34 Eye Response: spontaneous(4). Motor Response: obeys commands(6). Verbal Response: bm8 oriented(5). Total: 15. 04:08 Eye Response: spontaneous(4). Motor Response: obeys commands(6). Verbal Response: bm8 oriented(5). Total: 15. 06:16 Eye Response: spontaneous(4). Motor Response: obeys commands(6). Verbal Response: bm8 oriented(5). Total: 15. 06:47 Eye Response: spontaneous(4). Motor Response: obeys commands(6). Verbal Response: sp4 oriented(5). Total: 15. ED Course: 04/02 23:42 Patient arrived in ED. jj6 23:51 Michael Reardon MD is Attending Physician. sp4 04/03 00:00 Arm band placed on right wrist. bm8 00:25 Knee Left 3 View XRAY In Process Unspecified. EDMS 00:25 Ajay Wright, RN is Primary Nurse. bm8 00:29 Triage completed. bm8 00:32 Patient has correct armband on for positive identification. Bed in low position. Call bm8 light in reach. Side rails up X 1. Adult w/ patient. Client placed on continuous cardiac and pulse oximetry monitoring. NIBP monitoring applied. cardiac monitor technician on. Pulse ox on. NIBP on. Door closed. Noise minimized. Warm blanket given. Pillow given. Verbal reassurance given. Head of bed elevated. 00:32 Inserted saline lock: 20 gauge in right antecubital area, using aseptic technique. bm8 Blood collected. Flushed with 10 mL NS. 04:10 Provided Education on: Procedure Consent. bm8 07:13 Attending Physician role handed off by Michael Reardon MD rt 07:13 Suraj Ortega MD is Attending Physician. rt 08:06 Attending Physician role handed off by Suraj Ortega MD sp4 08:06 Michael Reardon MD is Attending Physician. sp4 08:12 Paul Holly MD is Referral Physician. sp4 08:50 No provider procedures requiring assistance completed. IV discontinued, intact, ph bleeding controlled, No redness/swelling at site. Pressure dressing applied. Administered Medications: 00:32 Drug: TORadol - Ketorolac IVP 30 mg IVP once Route: IVP; Site: right antecubital; bm8 04:18 Follow up: Response: No adverse reaction bm8 01:19 Drug: Acetaminophen-Codeine PO (300 mg-30 mg) 2 tabs PO once; RASS on ADMIN: Combtv4, bm8 Very Agttd3, Agttd2, Rstlss1, AlertClm0, Drwsy-1, Lt Sdtn-2, Mod Sdtn-3, Dp Sdtn-4, UnArsble-5 Route: PO; 04:17 Follow up: Response: No adverse reaction bm8 04:18 Follow up: Response: No adverse reaction bm8 01:19 Drug: Ondansetron PO 8 mg PO once Route: PO; bm8 04:17 Follow up: Response: No adverse reaction bm8 02:50 Drug: morphine IVP or IV 4 mg IVP once over 4 mins Route: IVP; Infused Over: 4 mins; bm8 Site: right antecubital; 04:17 Follow up: Response: No adverse reaction bm8 02:50 Drug: Ondansetron IVP 4 mg IVP once; over 2 minutes Route: IVP; Site: right antecubital;bm8 04:17 Follow up: Response: No adverse reaction bm8 03:25 Drug: morphine IVP or IV 4 mg IVP once over 4 mins Route: IVP; Infused Over: 4 mins; bm8 Site: right antecubital; 04:17 Follow up: Response: No adverse reaction bm8 04:18 Drug: Lidocaine Infiltration (1 %) 20 ml 20 ml Infiltration once; to bedside {Note: bm8 administered by provider.} Volume: 20 ml; Route: Infiltration; Site: affected area; 04:45 Drug: Cefepime IVPB 1 grams IVPB at 200 ml/hr once over 30 mins; (mix in NS 100 mL) bm8 Route: IVPB; Rate: 200 ml/hr; Infused Over: 30 mins; Site: right antecubital; 05:32 Follow up: Response: No adverse reaction; IV Status: Completed infusion; IV Intake: bm8 100ml 04:45 Drug: MethylPrednisoLONE IVP 125 mg IVP once Route: IVP; Site: right antecubital; bm8 06:26 Follow up: Response: No adverse reaction bm8 05:18 Drug: morphine IVP or IV 4 mg IVP once over 4 mins Route: IVP; Infused Over: 4 mins; bm8 Site: right antecubital; 06:26 Follow up: Response: No adverse reaction bm8 05:32 Drug: vancoMYCIN IVPB 1 grams IVPB once over 2 hrs Route: IVPB; Infused Over: 2 hrs; bm8 Site: right antecubital; 07:35 Follow up: Response: No adverse reaction; IV Status: Completed infusion; IV Intake: ph 250ml 06:25 Drug: Lidocaine Infiltration (1 %) 20 ml 20 ml Infiltration once; to bedside {Note: by 8 provider.} Volume: 20 ml; Route: Infiltration; Site: affected area; 08:16 Follow up: Response: No adverse reaction ph 08:52 Drug: predniSONE PO 60 mg PO once Route: PO; ph 08:52 Drug: HYDROcodone-acetaminophen PO 5 mg-325 mg 2 tabs PO once Route: PO; ph 08:52 Drug: Ibuprofen PO 800 mg PO once Route: PO; ph Medication: 00:32 VIS not applicable for this client. bm8 Intake: 05:32 IV: 100ml; Total: 100ml. bm8 07:35 IV: 250ml; Total: 350ml. ph Outcome: 08:13 Discharge ordered by MD. cheney 08:53 Patient left the ED. ph 08:53 Discharged to home via wheelchair, with significant other, ph 08:53 Condition: good 08:53 Discharge instructions given to patient, Instructed on discharge instructions, follow up and referral plans. medication usage, Demonstrated understanding of instructions, follow-up care, medications, Prescriptions given X 4, Signatures: Dis[facility] Nadiya Menchaca RN RN Makenzie Castro [email or web address] Noelle Bond RN RN ha1 Suraj Ortega MD MD rt Michael Reardon MD MD sp4 Ajay Wright RN RN bm8
--- NOTE | 2024-04-03 08:13 | EDPHYS ---
Physician Documentation [facility] Name: Karen Bunn Age: 33 yrs Sex: Female : 1990 Arrival Date: 04/02/2024 Time: 23:41 Bed 6 Private MD: ED Physician Michael Reardon HPI: 04/02 23:51 This 33 yrs old Female presents to ER via Unassigned with complaints of LEG sp4 LEFT SWELLING/FLUID. 04/03 06:47 33-year-old female presents with left knee swelling and pain started 3 days ago on sp4 Sunday.. 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 - Infectious Disease History:: Denies. - Social history:: Smoking status: Patient denies any tobacco usage or history of. - Family history:: not pertinent. ROS: 06:47 Constitutional: Negative for fever, chills, and weight loss, Eyes: Negative for injury, sp4 pain, redness, and discharge, ENT: Negative for injury, pain, and discharge, MS/Extremity: Positive for left knee swelling effusion and pain. 06:47 All other systems are negative, Exam: 06:47 Constitutional: This is a well developed, well nourished patient who is awake, alert, sp4 and in no acute distress. Head/Face: Normocephalic, atraumatic. Eyes: Pupils equal round and reactive to light, extra-ocular motions intact. Lids and lashes normal. Conjunctiva and sclera are not injected. Cornea within normal limits. Periorbital areas with no swelling, redness, or edema. ENT: Nares patent. No nasal discharge, no septal abnormalities noted. Tympanic membranes are normal and external auditory canals are clear. Oropharynx with no redness, swelling, or masses, exudates, or evidence of obstruction, uvula midline. Mucous membranes moist. Neck: Trachea midline, no thyromegaly or masses palpated, and no cervical lymphadenopathy. Supple, full range of motion without nuchal rigidity, or vertebral point tenderness. Chest/axilla: Normal chest wall appearance and motion. Nontender with no deformity. No lesions are appreciated. Cardiovascular: Regular rate and rhythm with a normal S1 and S2. No gallops, murmurs, or rubs. Normal PMI, no JVD. No pulse deficits. Respiratory: Lungs have equal breath sounds bilaterally, clear to auscultation and percussion. No rales, rhonchi or wheezes noted. No increased work of breathing, no retractions or nasal flaring. Abdomen/GI: Soft, with normal bowel sounds. No distension or tympany. No guarding or rebound. No evidence of tenderness throughout. Back: No spinal tenderness. No costovertebral tenderness. Skin: Warm, dry with normal turgor. Normal color with no rashes, no lesions, and no evidence of cellulitis. MS/ Extremity: Pulses equal, no cyanosis. Neurovascular intact. Full, normal range of motion. Positive for left knee effusion, and tenderness without redness Neuro: Awake and alert, GCS 15, oriented to person, place, time, and situation. Cranial nerves II-XII grossly intact. Motor strength 5/5 in all extremities. Sensory grossly intact. Psych: Awake, alert, with orientation to person, place and time. Behavior, mood, and affect are within normal limits Vital Signs: 00:00 BP 122 / 74; Pulse 67; Resp 18; Temp 98.7; Pulse Ox 98% on R/A; Weight 61.23 kg; Height bm8 5 ft. 3 in. ; Pain 6/10; 01:34 BP 115 / 54; Pulse 56; Resp 18; Temp 98.7; Pulse Ox 99% ; Pain 6/10; bm8 04:08 BP 128 / 69; Pulse 68; Resp 17; Temp 98.7; Pulse Ox 98% ; Pain 2/10; bm8 06:16 BP 117 / 72; Pulse 64; Resp 18; Temp 98.7; Pulse Ox 99% ; Pain 4/10; bm8 07:30 BP 108 / 71; Pulse 68; Resp 18; Pulse Ox 100% on R/A; ph 08:30 BP 112 / 78; Pulse 69; Resp 16; Temp 98; Pulse Ox 100% on R/A; ph 00:00 Body Mass Index 23.91 (61.23 kg, 160.02 cm) bm8 00:00 Pain Scale: Adult bm8 01:34 Pain Scale: Adult bm8 04:08 Pain Scale: Adult bm8 06:16 Pain Scale: Adult bm8 Netta Coma Score: 00:32 Eye Response: spontaneous(4). Motor Response: obeys commands(6). Verbal Response: bm8 oriented(5). Total: 15. 01:34 Eye Response: spontaneous(4). Motor Response: obeys commands(6). Verbal Response: bm8 oriented(5). Total: 15. 04:08 Eye Response: spontaneous(4). Motor Response: obeys commands(6). Verbal Response: bm8 oriented(5). Total: 15. 06:16 Eye Response: spontaneous(4). Motor Response: obeys commands(6). Verbal Response: bm8 oriented(5). Total: 15. 06:47 Eye Response: spontaneous(4). Motor Response: obeys commands(6). Verbal Response: sp4 oriented(5). Total: 15. Procedures: 06:49 Performed Left knee arthrocentesis performed by Dr. Paul Holly with Orthopedic sp4 surgery. Left knee arthrocentesis under sterile conditions performed by Dr. Paul Holly with Orthopedic surgery. MDM: 04/02 23:59 Medical Screening Exam initiated sp4 04/03 02:53 ED course: EXAM DESCRIPTION: Knee Left 3 View CLINICAL HISTORY: 33 years Female sp4 Deformity. COMPARISON: None. TECHNIQUE: 3 view study of the Left knee were performed. FINDINGS: No acute fracture seen. Normal bony mineralization. No erosive or lytic lesions seen. No definite joint effusion. IMPRESSION: No acute fracture or dislocation seen. Electronically signed by: Raya Doe MD 04/03/2024 12:36 AM FLOAT BUILDER RP. 07:49 Differential diagnosis: dislocation, open fracture, closed fracture, contusion, sp4 abrasion, tendonitis, septic arthritis. Data reviewed: vital signs, nurses notes, lab test result(s), radiologic studies, plain films. Transition of care: After a detail discussion of the patient's case, care is transferred to Suraj Ortega MD. 07:49 ED course: Patient is awaiting left knee synovial fluid studies. sp4 04/02 23:58 Order name: CBC with Diff; Complete Time: 01:00 sp4 04/02 23:58 Order name: CMP; Complete Time: 04:16 sp4 04/03 00:26 Order name: Test Serum, Qualitat; Complete Time: 01:00 EDMS 04/03 03:01 Order name: Blood Culture Adult (2) sp4 04/03 03:30 Order name: C-Reactive Protein; Complete Time: 04:16 EDMS 04/03 04:20 Order name: Uric Acid; Complete Time: 07:13 sp4 04/03 06:35 Order name: Fluid Cell Count,Body; Complete Time: 08:47 sp4 04/03 06:37 Order name: Fluid Crystals: Synovial fluid crystals - left knee; Complete Time: 07:49 sp4 04/03 06:38 Order name: Body Fluid Culture sp4 04/03 07:20 Order name: TOTAL PROTEIN, SYNOVIAL FLUID EDMS 04/03 07:20 Order name: GLUCOSE, SYNOVIAL FLUID EDMS 04/02 23:58 Order name: Knee Left 3 View XRAY; Complete Time: 07:13 sp4 04/02 23:58 Order name: IV Saline Lock; Complete Time: 00:32 sp4 04/02 23:58 Order name: Labs collected and sent; Complete Time: 00:32 sp4 04/03 03:01 Order name: Misc. Order: consent for Left knee Arthrocentesis; Complete Time: 04:08 sp4 04/03 04:16 Order name: NPO; Complete Time: 04:45 sp4 Administered Medications: 00:32 Drug: TORadol - Ketorolac IVP 30 mg IVP once Route: IVP; Site: right antecubital; bm8 04:18 Follow up: Response: No adverse reaction bm8 01:19 Drug: Acetaminophen-Codeine PO (300 mg-30 mg) 2 tabs PO once; RASS on ADMIN: Combtv4, bm8 Very Agttd3, Agttd2, Rstlss1, AlertClm0, Drwsy-1, Lt Sdtn-2, Mod Sdtn-3, Dp Sdtn-4, UnArsble-5 Route: PO; 04:17 Follow up: Response: No adverse reaction bm8 04:18 Follow up: Response: No adverse reaction bm8 01:19 Drug: Ondansetron PO 8 mg PO once Route: PO; bm8 04:17 Follow up: Response: No adverse reaction bm8 02:50 Drug: morphine IVP or IV 4 mg IVP once over 4 mins Route: IVP; Infused Over: 4 mins; bm8 Site: right antecubital; 04:17 Follow up: Response: No adverse reaction bm8 02:50 Drug: Ondansetron IVP 4 mg IVP once; over 2 minutes Route: IVP; Site: right antecubital;bm8 04:17 Follow up: Response: No adverse reaction bm8 03:25 Drug: morphine IVP or IV 4 mg IVP once over 4 mins Route: IVP; Infused Over: 4 mins; bm8 Site: right antecubital; 04:17 Follow up: Response: No adverse reaction bm8 04:18 Drug: Lidocaine Infiltration (1 %) 20 ml 20 ml Infiltration once; to bedside {Note: bm8 administered by provider.} Volume: 20 ml; Route: Infiltration; Site: affected area; 04:45 Drug: Cefepime IVPB 1 grams IVPB at 200 ml/hr once over 30 mins; (mix in NS 100 mL) bm8 Route: IVPB; Rate: 200 ml/hr; Infused Over: 30 mins; Site: right antecubital; 05:32 Follow up: Response: No adverse reaction; IV Status: Completed infusion; IV Intake: bm8 100ml 04:45 Drug: MethylPrednisoLONE IVP 125 mg IVP once Route: IVP; Site: right antecubital; bm8 06:26 Follow up: Response: No adverse reaction bm8 05:18 Drug: morphine IVP or IV 4 mg IVP once over 4 mins Route: IVP; Infused Over: 4 mins; bm8 Site: right antecubital; 06:26 Follow up: Response: No adverse reaction bm8 05:32 Drug: vancoMYCIN IVPB 1 grams IVPB once over 2 hrs Route: IVPB; Infused Over: 2 hrs; bm8 Site: right antecubital; 07:35 Follow up: Response: No adverse reaction; IV Status: Completed infusion; IV Intake: ph 250ml 06:25 Drug: Lidocaine Infiltration (1 %) 20 ml 20 ml Infiltration once; to bedside {Note: by bm8 provider.} Volume: 20 ml; Route: Infiltration; Site: affected area; 08:16 Follow up: Response: No adverse reaction ph 08:52 Drug: predniSONE PO 60 mg PO once Route: PO; ph 08:52 Drug: HYDROcodone-acetaminophen PO 5 mg-325 mg 2 tabs PO once Route: PO; ph 08:52 Drug: Ibuprofen PO 800 mg PO once Route: PO; ph Disposition Summary: 04/03/24 08:13 Discharge Ordered Notes: No work for 1 week Location: Home sp4 Problem: new sp4 Symptoms: have improved sp4 Condition: Stable sp4 Diagnosis - Acute pseudogout, Calcium pyrophosphate dihydrate (CPPD) crystal deposition diseasesp4 - Acute Left knee effusion and CPPD sp4 Followup: sp4 - With: Paul Holly MD - When: 5 - 6 days - Reason: Recheck today's complaints Discharge Instructions: - Discharge Summary Sheet sp4 - Calcium Pyrophosphate Deposition sp4 Forms: - Work release form sp4 - Patient Portal Instructions sp4 Prescriptions: - Ibuprofen 800 mg Oral Tablet - take 1 tablet ORAL route every 8 hours As needed take with food; 30 tablet; sp4 Refills: 0, Product Selection Permitted - Medrol (Shiva) 4 mg Oral Tablets, Dose Pack - take 1 tablet ORAL route as directed - follow package instructions; 1 packet; sp4 Refills: 0, Product Selection Permitted - methocarbamol 750 mg Oral tablet - take 2 tablets ORAL route every 8 hours for 2 days PRN pain; 60 tablet; sp4 Refills: 0, Product Selection Permitted Signatures: Dispatcher [employer] Nadiya Gil, АНДРЕЙ RN ph Suraj Ortega MD MD rt Michael Reardon MD MD sp4 Ajay Wright RN RN bm8 Corrections: (The following items were deleted from the chart) 04/02 23:58 23:58 CBC+H.LAB.BRZ ordered. EDMS EDMS 23:58 23:58 COMPREHENSIVE METABOLIC PANEL+C.LAB.BRZ ordered. EDMS EDMS 04/03 00:26 04/02 23:58 Test, Urine+UC.LAB.BRZ ordered. EDMS EDMS 04/03 03:30 02:53 C-REACTIVE PROTEIN+C.LAB.BRZ ordered. EDMS EDMS 06:37 06:37 FLUID SOURCE+H.LAB.BRZ ordered. EDMS EDMS 07:20 06:39 GLUCOSE+C.LAB.BRZ ordered. EDMS EDMS
[2024-04-03 08:19] LABS: Appearance SLT. TURBID (CLEAR); Body Fluid Source SYNOVIAL; Body Fluid WBC 4766 /mm^3; Color of Supernate ND (Not Xantho); Color of fluid Yellow (COLORLESS); Fluid Total Cells Count 100
[2024-04-03 08:32] LABS: Body Fluid Lymphocytes 35 %
[2024-04-03] MEDS ORDERED: IBUPROFEN 400 MG TAB ONE (08:34)
[2024-04-03] MEDS ORDERED: predniSONE 20 MG TAB ONE (08:34)
[2024-04-03] MEDS ORDERED: HYDROCODONE/APAP 5/325 MG TAB ONE (08:34)
[2024-04-03 08:57] VITALS: TEMP 98.7
[2024-04-03 09:02] VITALS: BP 108/71; O2SAT 100
[2024-04-11 20:17] LABS: TOTAL PROTEIN, SYNOVIAL FLUID 3.6 g/dL (1.0-3.0)
== END 2024-04-03 08:53 | disposition home or self-care (01) ==
LOC: ER 23:41
DX: M11.262 Other chondrocalcinosis, left knee (principal)
CPT/HCPCS: 96365; 96367; 87040 ×2; 87070; 85025; 36415 ×2; 89050; 87205 ×2; 84703; 84157; 82945; 84550; 80053; 89060; 86140; 73562; 96375; 99285; 96366; 20610; J7512; Q0162; J2003 ×2; J2919; J2405; J7050; J0692; 87077; 87186

== ENCOUNTER 2024-04-07 15:47 | Emergency (ER) | payer OTHER ==
--- OUTSIDE RECORDS SUMMARY | 2024-04-07 15:49 | XMS REPORT | Continuity of Care Document ---
Author Name Unknown Address [address] [facility] [facility] [address] [place] [id number] [facility] thconnect Address [address] [facility] [address] [place] [address] Care Team Providers Care Attendance Clerk Name Role Phone PCP, PATIENT DOES NOT HAVE A Primary Care Physic ángel Unavailable JORGE MOE Attending Clinician Unavailable Jorge Moe MD Attending Clinician [phone] Unknown, Attending Attending Clinician Unavailab ORLANDO Ayon Attending Clinician Unavaila FER [place] Attending Clinician Unavailable [id number] Attending Clinician Unavailable MARC DURAN Attending Clinician Unavailable Fer Ivey DO Attending Clinician Payers Payer Name Policy Type Policy Number Effective Date Expirati on Date Source PHCS GENERIC [id number] 2023 00:00:00 [employer]-ALLIED BENEFITS SYS/PPO 2 [id number] 2022 00:00:00 [employer]-ALLIED BNFT SYSTEM/* 2 [id number] 2021 00:00:00 Problems Condition Name Condition Details [...] NO KNOWN ALLERGIE S Drug Class Active [facility] Social History Social Habit Start Date Stop Date Quantity Comments Source Gender identity 2022-03-15 11:43:27 Identifies as female gender (finding) Ene Aldrich - External Sexual orientation [facility] History SDOH Alcohol Binge Ene Aldrich - [...] Sex [birth year] at 1990 00:00:00 1990 00:[birth year]:00 [facility] Smoking Status Start Date Stop Date Source Tobacco smoking consumption unknown [facility] Never smoked tobacco Ene Aldrich - External Medications Ordered Medication Name Filled Medication Name Start Date Stop Date Current Medication? Ordering Clinician Indication Dosage Frequency Signature (SIG) Comments Components Source ondansetron (ZOFRAN-ODT ) disintegrat ing tablet 8 mg 2023-05 00:45: 00 03-25 23:44 :00 No [id number] 8mg 8 mg, Oral, ONCE, 1 dose, On Sun03/25/24 at 1845, Routine [facility] ketorolac (TORADOL) injection 30 mg 2023-05 00:45: 00 03-25 23:46 :00 No [id number] 30mg 30 mg, Intramuscu lar, ONCE, 1 dose, On Sun03/25/24 at 1845, Routine [facility] ondansetron 4 mg disintegrat ing tablet 2023-05 00:00: 00 Yes [id number] 4mg Take 1 tablet by mouth every 12 (twelve) hours as needed for Nausea and Vomiting (N/V). [facility] acetaminoph en-caff-but albital (ESGIC) per capsule 2023-05 00:00: 00 Yes [id number] 1{capsu le} Take 1 capsule by mouth every 6 (six) hours as needed for Pain. [facility] Multiple Vitamins-Ir on (MULTIVITAM IN PLUS IRON ADULT OR) 11-08 11:22: 26 Yes 1{each} Take 1 each by mouth daily Ene ramsey Fluoxetine HCl 10 MG oral Capsule 11-08 00:00: 00 Yes [id number] 10mg Take 1 capsule (10 mg total) by mouth daily Ene ramsey Ferrous Sulfate (Iron) 325 (65 Fe) MG oral Tablet 2021-05 00:00: 00 Yes [id number] 325mg Take 1 tablet (325 mg total) by mouth daily (with breakfast) Ene ramsey Multiple Vitamins-Ir on (MULTIVITAM IN PLUS IRON ADULT OR) 2021-05 09:17: 53 Yes 1{each} Take 1 each by mouth daily Ene ramsey Oseltamivir Phosphate 75 MG oral Capsule 2021-05 00:00: 00 03-23 00:00 :00 No Ene ramsey Meloxicam 15 MG oral Tablet 10-11 00:00: 00 03-23 00:00 :00 No [id number] 15mg QD Take 1 tablet (15 mg total) by mouth daily as needed for pain Ene ramsey Tizanidine HCl 2 MG oral Capsule 10-11 00:00: 00 03-23 00:00 :00 No [id number] 2mg Q.5D Take 1 capsule (2 mg total) by mouth as needed in the morning and 1 capsule (2 mg total) as needed in the evening for muscle spasms. Ene ramsey Vital Signs Vital Name Observation Time Observation Value Comments S berenice Systolic blood pressure 2024-03-25 23:15:00 106 mm[Hg] [facility] Diastolic blood pressure 2024-03-25 23:15:00 76 mm[Hg] [facility] Heart rate 2024-03-25 23:15:00 50 /min [facility] Body temperature 2024-03-25 23:15:00 36.56 Carmela [facility] Respiratory rate 2024-03-25 23:15:00 18 /min [facility] Body weight 2024-03-25 23:15:00 61.871 kg [facility] Oxygen saturation in Arterial blood by Pulse oximetry 2024-03-25 23:15:00 98 /min [facility] Systolic blood pressure 2022-11-08 16:21:00 102 mm[Hg] Ene kodi ld - External Diastolic blood pressure 2022-11-08 16:21:00 73 mm[Hg] Ene kodi ld - External Heart rate 2022-11-08 16:21:00 64 /min Kel y Semaxi - External Body temperature 2022-11-08 16:21:00 36.17 Carmela Ene burkewalekr - External Respiratory rate 2022-11-08 16:21:00 14 [...] POCT MOLECULAR FLU 2024-03-25 23:19:00 Unknown, Attend [facility] POCT SARS-COV-2 ANTIGEN (BINAX NOW) 2024-03-25 00:00:00 Sandra Nazario [facility] Encounters Start Date/Time End Date/Time Encounter Type Admission Type Attending [facility] Care Facility Care Department Encounter ID Source 2024-03-25 16:00:00 2024-03-25 18:04:12 Outpatient R BLAINEJORGE [facility] [id number] [facility] 2024-03-25 16:00:00 2024-03-25 16:20:00 Urgent Care Blaine Jorge Unknown, Attending [facility] [id number] [facility] 2022-12-13 10:00:00 2022-12-13 10:00:00 Outpatient ORLANDO RODRIGES [id number] [facility] 2022-12-12 13:30:00 2022-12-12 13:30:00 Outpatient FER IVEY [id number] [facility] 2022-11-17 00:00:00 2022-11-17 00:00:00 Outpatient FER IVEY [id number] [facility] 2022-11-08 11:45:00 2022-11-08 11:45:00 Outpatient PREZAFER Wolf [id number] [facility] 2022-11-08 00:00:00 2022-11-08 00:00:00 Outpatient PREZAFER Wolf [id number] [facility] 2022-08-31 00:00:00 2022-08-31 00:00:00 Outpatient FER IVEY [id number] [facility] 2022-03-31 00:00:00 2022-03-31 00:00:00 Outpatient PREFER BURGOS [id number] [facility] 2022-03-24 00:00:2022-03-24 00:00:00 Outpatient FER IVEY [id number] Ene [facility] 2022-03-23 10:15:00 2022-03-23 10:15:00 Outpatient LAB90 ENE RASMUSSEN [id number] [facility] 2022-03-23 09:30:00 2022-03-23 09:30:00 Outpatient FER IVEY [id number] [facility] 2022-03-22 09:00:00 2022-03-22 09:00:00 Outpatient PREFER BURGOS [id number] [facility] 2021-10-19 10:30:00 2021-10-19 10:30:00 Office Visit MARC DURAN [id number] Ene [facility] 2021-10-19 09:55:00 2021-10-19 09:55:00 Outpatient ENE RASMUSSEN [id number] [facility] 2021-10-11 14:00:00 2021-10-11 14:30:00 Office Visit Fer Ivey [id number] Ene [facility] 2021-10-11 00:00:00 2021-10-11 00:00:00 Outpatient MARC DURAN [id number] [facility] Results Test Description Test Time Test Comments Results Result Co mments Source [facility] [id number] 23:30:49* Test Item Value Reference Range Interpretation Comme nts POCT Molecular FluA (test co de = 50327-5) Negative Negative POCT Molecular FluB (test co de = 08208-6) Negative Negative Lab Interpretation (test cod e = 95178-1) Normal [facility]
--- NOTE | 2024-04-07 16:28 | EDPHYS ---
Physician Documentation [facility] Name: Karen Bunn Age: 33 yrs Sex: Female : 1990 Arrival Date: 04/07/2024 Time: 15:47 Bed 27 Private MD: ED Physician Tobin Reid HPI: 04/07 16:16 This 33 yrs old Female presents to ER via Unassigned with complaints of Left patrick knee swelling. 16:16 The patient presents with decreased range of motion, pain, that is acute, swelling. The patrick complaints affect the left knee. Context: resulted from gout/pseudo. Onset: The symptoms/episode began/occurred 3 day(s) ago. Modifying factors: The symptoms are alleviated by elevating leg, remaining still, the symptoms are aggravated by movement, weight bearing. Associated signs and symptoms: Pertinent positives: swelling. Treatment prior to arrival includes: elevation of the extremity, icing the affected extremity, prescription medications, oral steroid, nsaid. Severity of symptoms: At their worst the symptoms were moderate, in the emergency department the symptoms are unchanged. The patient has experienced similar episodes in the past, a few times. 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 - Infectious Disease History:: Denies. - Family history:: not pertinent. - Social history:: Smoking status: Reported history of juuling and/or vaping. ROS: 16:19 Constitutional: Negative for fever, chills, and weight loss, Eyes: Negative for injury, patrick pain, redness, and discharge, ENT: Negative for injury, pain, and discharge, Neck: Negative for injury, pain, and swelling, Cardiovascular: Negative for chest pain, palpitations, and edema, Respiratory: Negative for shortness of breath, cough, wheezing, and pleuritic chest pain, Abdomen/GI: Negative for abdominal pain, nausea, vomiting, diarrhea, and constipation, Back: Negative for injury and pain, : Negative for injury, bleeding, discharge, and swelling, Skin: Negative for injury, rash, and discoloration, Neuro: Negative for headache, weakness, numbness, tingling, and seizure, Psych: Negative for depression, anxiety, suicide ideation, homicidal ideation, and hallucinations, Allergy/Immunology: Negative for hives, rash, and allergies, Endocrine: Negative for neck swelling, polydipsia, polyuria, polyphagia, and marked weight changes, Hematologic/Lymphatic: Negative for swollen nodes, abnormal bleeding, and unusual bruising, 16:19 MS/extremity: Positive for decreased range of motion, pain, swelling, tenderness, of the left knee, Exam: 16:19 Constitutional: This is a well developed, well nourished patient who is awake, alert, patrick and in no acute distress. Head/Face: Normocephalic, atraumatic. Eyes: Pupils equal round and reactive to light, extra-ocular motions intact. Lids and lashes normal. Conjunctiva and sclera are non-icteric and not injected. Cornea within normal limits. Periorbital areas with no swelling, redness, or edema. ENT: Nares patent. No nasal discharge, no septal abnormalities noted. Tympanic membranes are normal and external auditory canals are clear. Oropharynx with no redness, swelling, or masses, exudates, or evidence of obstruction, uvula midline. Mucous membranes moist. Neck: Trachea midline, no thyromegaly or masses palpated, and no cervical lymphadenopathy. Supple, full range of motion without nuchal rigidity, or vertebral point tenderness. No Meningismus. Chest/axilla: Normal chest wall appearance and motion. Nontender with no deformity. No lesions are appreciated. Cardiovascular: Regular rate and rhythm with a normal S1 and S2. No gallops, murmurs, or rubs. Normal PMI, no JVD. No pulse deficits. Respiratory: Lungs have equal breath sounds bilaterally, clear to auscultation and percussion. No rales, rhonchi or wheezes noted. No increased work of breathing, no retractions or nasal flaring. Abdomen/GI: Soft, non-tender, with normal bowel sounds. No distension or tympany. No guarding or rebound. No evidence of tenderness throughout. Back: No spinal tenderness. No costovertebral tenderness. Full range of motion. Skin: Warm, dry with normal turgor. Normal color with no rashes, no lesions, and no evidence of cellulitis. Neuro: Awake and alert, GCS 15, oriented to person, place, time, and situation. Cranial nerves II-XII grossly intact. Motor strength 5/5 in all extremities. Sensory grossly intact. Cerebellar exam normal. Normal gait. Psych: Awake, alert, with orientation to person, place and time. Behavior, mood, and affect are within normal limits. 16:19 Musculoskeletal/extremity: ROM: limited active range of motion, limited passive range of motion, limited active range of motion due to pain, limited passive range of motion due to pain, in the left knee, Circulation is intact in all extremities. Sensation intact. Compartment Syndrome exam of affected extremity: is normal. Joints: All joints are normal except effusion, limited range of motion, painful range of motion, tenderness, Weight bearing: is unable to bear weight, DVT Exam: pain, swelling, tenderness, of the left leg, of the left knee, Vital Signs: 16:23 BP 119 / 67; Pulse 79; Resp 17; Temp 98.5(O); Pulse Ox 97% on R/A; MAP 82 mmHg; Weight tm6 61.23 kg; Height 5 ft. 3 in. ; Pain 9/10; 16:23 Body Mass Index 23.91 (61.23 kg, 160.02 cm) tm6 16:23 Pain Scale: Adult tm6 MDM: 15:56 Medical Screening Exam initiated [facility] 16:21 Differential diagnosis: closed fracture, contusion, abrasion, tendonitis. Data [facility] reviewed: vital signs, nurses notes, radiologic studies, plain films. Consideration of Admission/Observation Escalation of care including admission/observation considered. I considered the following discharge prescriptions or medication management in the emergency department Medications were administered in the Emergency Department. See MAR. Independent interpretation of the following test(s) in the Emergency Department X-Ray: My interpretation is left knee. Test considered but Not performed: MRI: no mri needed. Historians other than the Patient: pt well informed. Care significantly affected by the following chronic conditions: pseudogout. 04/07 15:57 Order name: Knee Left 3 View XRAY [facility] 04/07 16:09 Order name: Knee Immobilizer; Complete Time: 17:46 [facility] Administered Medications: : Drug: Magnesium Oxide PO 400 mg PO once; administer with meals Route: PO; [facility] 17:46 Follow up: Response: No adverse reaction [facility] 17:25 Drug: colchicine 0.6 mg 1.2 mg PO once Route: PO; jb4 17:46 Follow up: Response: No adverse reaction [facility] 17:46 Drug: colchicine 0.6 mg 1 tabs PO once; in 1 hour after the 1.2 mg dose {Note: jb4 Instructed pt to take 1hr from 1.2 mg dose per providers instructions..} Route: PO; 17:47 Follow up: Response: Medication administered at discharge. jb4 Disposition Summary: 04/07/24 16:28 Discharge Ordered Notes: Location: Home patrick Problem: new patrick Symptoms: have improved patrick Condition: Stable patrick Diagnosis - Effusion, left knee patrick - Gout, unspecified - PSEUDOGOUT patrick Followup: patrick - With: Private Physician - When: 2 - 3 days - Reason: Recheck today's complaints, Continuance of care, Re-evaluation by your physician Followup: [facility] - With: Paul Holly MD - When: 2 - 3 days - Reason: Recheck today's complaints, Re-evaluation by your physician Discharge Instructions: - Discharge Summary Sheet [facility] - Gout patrick - Knee Effusion [facility] - Calcium Pyrophosphate Deposition [facility] - Low-Purine Eating Plan patrick - Gout, [id number] [facility] Forms: - Medication Reconciliation Form [facility] - Antibiotic Education patrick - Prescription Opioid Use [facility] - Patient Portal Instructions [facility] - Leadership Thank You Letter [facility] Prescriptions: - MagOx 400 mg (241.3 mg magnesium) Oral tablet - take 1 tablet ORAL route 2 times per day; 14 tablet; Refills: 0, Product patrick Selection Permitted - colchicine 0.6 mg Oral capsule - take 2 capsule ORAL route 2 times per day; 6 capsule; Refills: 0, Product [facility] Selection Permitted - indomethacin 50 mg Oral capsule - take 1 capsule ORAL route 3 times per day administer with food or milk; 21 patrick capsule; Refills: 0, Product Selection Permitted - Medrol (Shiva) 4 mg Oral Tablets, Dose Pack - take 1 tablet ORAL route as directed - follow package instructions; 1 packet; [facility] Refills: 0, Product Selection Permitted Signatures: Dispatcher [employer] Tobin Clemente MD MD cha Bryson, James RN RN jb4 Petty Monge RN RN tm6 Corrections: (The following items were deleted from the chart) 15:59 15:59 Urinalysis+U.LAB.BRZ ordered. EDWA EDWA 15:59 15:59 Test, Urine+UC.LAB.BRZ ordered. EDMS EDMS
--- NOTE | 2024-04-07 16:28 | ER ---
Nurse's Notes [facility] Name: Karen Bunn Age: 33 yrs Sex: Female : 1990 Arrival Date: 04/07/2024 Time: 15:47 Bed 27 Private MD: Diagnosis: Effusion, left knee;Gout, unspecified-PSEUDOGOUT Presentation: 04/07 16:24 Chief complaint: Patient states: I have fluid on my left knee. It is constant pressure tm6 and a lot of pain. I was here on Sunday and they drained 30cc of fluid from my left knee, but things have not gotten better. Coronavirus screen: Client denies travel out of the [place] in the last 14 days. Ebola Screen: Patient negative for fever greater than or equal to 101.5 degrees Fahrenheit, and additional compatible Ebola Virus Disease symptoms Patient denies exposure to infectious person. Patient denies travel to an Ebola-affected area in the 21 days before illness onset. No symptoms or risks identified at this time. Initial Sepsis Screen: Does the patient meet any 2 criteria? No. Patient's initial sepsis screen is negative. Does the patient have a suspected source of infection? No. Patient's initial sepsis screen is negative. Risk Assessment: Do you want to hurt yourself or someone else? Patient reports no desire to harm self or others. Onset of symptoms was March 31, 2024. 16:24 Method Of Arrival: Wheelchair tm6 16:24 Acuity: CARLOS 3 tm6 Triage Assessment: 16:24 General: Appears uncomfortable, Behavior is calm, cooperative. Pain: Complains of pain tm6 in left knee Pain currently is 9 out of 10 on a pain scale. Pain began one week ago. EENT: No signs and/or symptoms were reported regarding the EENT system. Neuro: Level of Consciousness is awake, alert, obeys commands, Oriented to person, place, time, situation. Cardiovascular: Patient's skin is warm and dry. Respiratory: Airway is patent Respiratory effort is even, unlabored, Respiratory pattern is regular, symmetrical. GI: No signs and/or symptoms were reported involving the gastrointestinal system. Abdomen is flat, non-distended. : No signs and/or symptoms were reported regarding the genitourinary system. Derm: No signs and/or symptoms reported regarding the dermatologic system. Musculoskeletal: Reports pain in left knee since one week ago. Pain is 9 out of 10 on a pain scale. swelling in left knee. 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 - Infectious Disease History:: Denies. - Family history:: not pertinent. - Social history:: Smoking status: Reported history of juuling and/or vaping. Screenin:47 [facility] ED Fall Risk Assessment (Adult) History of falling in the last 3 months, jb4 including since admission No falls in past 3 months (0 pts) Confusion or Disorientation No (0 pts) Intoxicated or Sedated No (0 pts) Impaired Gait Yes (1 pt) Mobility Assist Device Used Yes (1 pt) Altered Elimination No (0 pt) Score/Fall Risk Level 0 - 2 = Low Risk Oriented to surroundings, Maintained a safe environment. Abuse screen: Denies threats or abuse. Nutritional screening: No deficits noted. Tuberculosis screening: No symptoms or risk factors identified. Assessment: 17:45 Reassessment: Patient appears in no apparent distress at this time. Patient and/or jb4 family updated on plan of care and expected duration. Pain level reassessed. Patient is alert, oriented x 3, equal unlabored respirations, skin warm/dry/pink. Vital Signs: 16:23 BP 119 / 67; Pulse 79; Resp 17; Temp 98.5(O); Pulse Ox 97% on R/A; MAP 82 mmHg; Weight tm6 61.23 kg; Height 5 ft. 3 in. ; Pain 9/10; 16:23 Body Mass Index 23.91 (61.23 kg, 160.02 cm) tm6 16:23 Pain Scale: Adult tm6 ED Course: 15:49 Patient arrived in ED. ra3 15:56 Tboin Reid MD is Attending Physician. patrick 16:24 Knee Left 3 View XRAY In Process Unspecified. EDMS 16:24 Arm band placed on right wrist. tm6 16:25 Triage completed. tm6 16:27 Paul Holly MD is Referral Physician. patrick 17:47 Patient has correct armband on for positive identification. Bed in low position. Call jb4 light in reach. Side rails up X 1. Provided Education on: discharge instructions.. 17:47 No provider procedures requiring assistance completed. Patient did not have IV access jb4 during this emergency room visit. Administered Medications: 17:25 Drug: Magnesium Oxide PO 400 mg PO once; administer with meals Route: PO; jb4 17:46 Follow up: Response: No adverse reaction jb4 17:25 Drug: colchicine 0.6 mg 1.2 mg PO once Route: PO; jb4 17:46 Follow up: Response: No adverse reaction 4 17:46 Drug: colchicine 0.6 mg 1 tabs PO once; in 1 hour after the 1.2 mg dose {Note: jb4 Instructed pt to take 1hr from 1.2 mg dose per providers instructions..} Route: PO; 17:47 Follow up: Response: Medication administered at discharge. jb4 Outcome: 16:28 Discharge ordered by . [facility] 17:47 Discharged to home via wheelchair, with family, [facility] 17:47 Condition: stable 17:47 Discharge instructions given to patient, Instructed on discharge instructions, follow up and referral plans. medication usage, Demonstrated understanding of instructions, follow-up care, medications, Prescriptions given X 4, 17:48 Patient left the ED. jb4 Signatures: Dispatcher [employer] EDTobin Cedillo MD MD cha Bryson, James, RN RN jb4 Petty Monge RN RN tm6 Estrellita Snyder ra3
[2024-04-07] MEDS ORDERED: COLCHICINE 0.6 MG TAB ONE (17:15)
[2024-04-07] MEDS ORDERED: MAGNESIUM OXIDE 400 MG TAB ONE (17:15)
--- NOTE | 2024-04-07 17:44 | RAD REPORT ---
EXAM: XR Knee Left 3 View HISTORY: [facility] MA[facility] Pain;Swelling Bed: COMPARISON: 04/03/2024 TECHNIQUE: 3 views of the left knee were obtained. FINDINGS: Moderate to large knee effusion is seen, progressive. There is no evidence of acute fractur e or dislocation. No significant degenerative changes are seen. No soft tissue swelling or other soft tissue abnormality is present. IMPRESSION: Moderate to large knee joint effusion. No evidence of acute osseous abnormality.
[2024-04-07 20:48] VITALS: BP 119/67; TEMP 98.5; O2SAT 97
== END 2024-04-07 17:48 | disposition home or self-care (01) ==
LOC: ER 15:47
DX: M25.462 Effusion, left knee (principal); M10.9 Gout, unspecified; F17.290 Nicotine dependence, other tobacco product, uncomplicated
CPT/HCPCS: 99283

== ENCOUNTER 2024-04-17 11:33 | Emergency (ER) | payer OTHER ==
--- OUTSIDE RECORDS SUMMARY | 2024-04-17 11:36 | XMS REPORT | Continuity of Care Document ---
Author Name Unknown Address [address] [facility] [id number] [facility] thconnect Address [address] [facility] [address] [place] [address] Care Team Providers Care Health Unit Supervisor Name Role Phone PCP, PATIENT DOES NOT HAVE A Primary Care Physic ángel Unavailable JORGE VALLADARES Attending Clinician Unavailable Jorge Valladares MD Attending Clinician [phone] Unknown, Attending Attending Clinician Unavailab ORLANDO Ayon Attending Clinician Unavaila FER [place] Attending Clinician Unavailable [id number] Attending Clinician Unavailable MARC DURAN Attending Clinician Unavailable Fer Ivey DO Attending Clinician Payers Payer Name Policy Type Policy Number Effective Date Expirati on Date Source [employer] GENERIC [id number] 2023 00:00:00 [employer]-ALLIED BENEFITS SYS/PPO 2 [id number] 2022 00:00:00 [employer]-ALLIED BNFT SYSTEM/* 2 [id number] 2021 00:00:00 Problems Condition Name Condition Details Condition Category Status Onset Date Resolution Date Last Treatment Date Treating Clinician Comments Source Iron deficiency anemia secondary to inadequate dietary iron intake Iron deficiency anemia secondary to inadequate dietary iron intake Disease Active 11-08 00:00: 00 Ene ramsey Screening for diabetes mellitus Screening for diabetes mellitus Disease Active 2021-05 1 00:00: 00 Ene ramsey Menorrhagi a with [...] NO KNOWN ALLERGIE S Drug Class Active [facility] Social History Social Habit Start Date Stop Date Quantity Comments Source Gender identity 2022-03-15 11:43:27 Identifies as female gender (finding) Ene Aldrich - External Sexual orientation [facility] History SDOH Alcohol Binge Ene Aldrich - [...] Sex [birth year] at 1990 00:00:00 1990 00:00:00 [facility] Smoking Status Start Date Stop Date Source Tobacco smoking consumption unknown [facility] Never smoked tobacco Ene Aldrich - External Medications Ordered Medication Name Filled Medication Name Start Date Stop Date Current Medication? Ordering Clinician Indication Dosage Frequency Signature (SIG) Comments Components Source ondansetron (ZOFRAN-ODT ) disintegrat ing tablet 8 mg 2023-05 00:45: 00 03-25 23:44 :00 No [id number] 8mg 8 mg, Oral, ONCE, 1 dose, On Sun03/25/24 at 1845, Routine [facility] ketorolac (TORADOL) injection 30 mg 2023-05 00:45: 00 03-25 23:46 :00 No [id number] 30mg 30 mg, Intramuscu lar, ONCE, 1 dose, On Sun03/25/24 at 1845, Routine [facility] ondansetron 4 mg disintegrat ing tablet 2023-05 00:00: 00 Yes [id number] 4mg Take 1 tablet by mouth every 12 (twelve) hours as needed for Nausea and Vomiting (N/V). [facility] acetaminoph en-caff-but albital (ESGIC) per capsule 2023-05 00:00: 00 Yes [id number] 1{capsu le} Take 1 capsule by mouth every 6 (six) hours as needed for Pain. [facility] Multiple Vitamins-Ir on (MULTIVITAM IN PLUS IRON ADULT OR) 11-08 11:22: 26 Yes 1{each} Take 1 each by mouth daily Ene ramsey Fluoxetine HCl 10 MG oral Capsule 11-08 00:00: 00 Yes [id number] 10mg Take 1 capsule (10 mg total) by mouth daily Ene ramsey Ferrous Sulfate (Iron) 325 (65 Fe) MG oral Tablet 2021-05 00:00: 00 Yes [id number] 325mg Take 1 tablet (325 mg total) by mouth daily (with breakfast) Ene ramsey Multiple Vitamins-Ir on (MULTIVITAM IN PLUS IRON ADULT OR) 2021-05 09:17: 53 Yes 1{each} Take 1 each by mouth daily Ene ramsey Oseltamivir Phosphate 75 MG oral Capsule 2021-05 00:00: 00 03-23 00:00 :00 No Ene ramsey Meloxicam 15 MG oral Tablet 10-11 00:00: 00 03-23 00:00 :00 No [id number] 15mg QD Take 1 tablet (15 mg total) by mouth daily as needed for pain Ene ramsey Tizanidine HCl 2 MG oral Capsule 10-11 00:00: 00 03-23 00:00 :00 No [id number] 2mg Q.5D Take 1 capsule (2 mg total) by mouth as needed in the morning and 1 capsule (2 mg total) as needed in the evening for muscle spasms. Ene ramsey Vital Signs Vital Name Observation Time Observation Value Comments Luciano ng Systolic blood pressure 2024-03-25 23:15:00 106 mm[Hg] [facility] Diastolic blood pressure 2024-03-25 23:15:00 76 mm[Hg] [facility] Heart rate 2024-03-25 23:15:00 50 /min [facility] Body temperature 2024-03-25 23:15:00 36.56 Carmela [facility] Respiratory rate 2024-03-25 23:15:00 18 /min [facility] Body weight 2024-03-25 23:15:00 61.871 kg [facility] Oxygen saturation in Arterial blood by Pulse oximetry 2024-03-25 23:15:00 98 /min [facility] Systolic blood pressure 2022-11-08 16:21:00 102 mm[Hg] Ene Bond ld - External Diastolic blood pressure 2022-11-08 16:21:00 73 mm[Hg] Ene Bond ld - External Heart rate 2022-11-08 16:21:00 64 /min Kristina matthew burkewalker - External Body temperature 2022-11-08 16:21:00 36.17 Carmela Ene Aldrich - External Respiratory rate 2022-11-08 16:21:00 14 /min Ene Aldrich - External Body height 2022-11-08 16:21:00 160 cm Shonna raul Delacruzybold - External Body weight 2022-11-08 16:21:00 55.52 kg Shonna ey Seybold - External BMI 2022-11-08 16:21:00 21.68 kg/m2 Shonna raul Delacruzybwalker - External Oxygen saturation in Arterial blood by Pulse oximetry 2022-11-08 16:21:00 99 /min Ene Seybo ld - External Systolic blood pressure 2022-03-23 [...] POCT MOLECULAR FLU 2024-03-25 23:19:00 Unknown, Attend [facility] POCT SARS-COV-2 ANTIGEN (BINAX NOW) 2024-03-25 00:00:00 Sandra Nazario [facility] Encounters Start Date/Time End Date/Time Encounter Type Admission Type Attending [facility] Care Department Encounter ID Source 2024-03-25 16:00:00 2024-03-25 18:04:12 Outpatient JORGE TORO [facility] [id number] [facility] 2024-03-25 16:00:00 2024-03-25 16:20:00 Urgent Care Jorge Valladares Unknown, Attending [facility] [id number] [facility] 2022-12-13 10:00:00 2022-12-13 10:00:00 Outpatient ORLANDO RODRIGES [id number] Ene [facility] 2022-12-12 13:30:00 2022-12-12 13:30:00 Outpatient FER IVEY [id number] Ene [facility] 2022-11-17 00:00:00 2022-11-17 00:00:00 Outpatient FER IVEY [id number] Ene [facility] 2022-11-08 11:45:00 2022-11-08 11:45:00 Outpatient PREZAFER Wolf [id number] Ene [facility] 2022-11-08 00:00:00 2022-11-08 00:00:00 Outpatient PREZAFER Wolf [id number] Ene [facility] 2022-08-31 00:00:00 2022-08-31 00:00:00 Outpatient FER IVEY [id number] Ene [facility] 2022-03-31 00:00:00 2022-03-31 00:00:00 Outpatient PREFER BURGOS [id number] [facility] 2022-03-24 00:00:00 2022-03-24 00:00:00 Outpatient FER IVEY [id number] Ene Aldrich 2022-03-23 10:15:00 2022-03-23 10:15:00 Outpatient LAB90 ENE RASMUSSEN [id number] Ene [facility]rich 2022-03-23 09:30:00 2022-03-23 09:30:00 Outpatient FER IVEY [id number] Ene [facility]rich 2022-03-22 09:00:00 2022-03-22 09:00:00 Outpatient FER IVEY [id number] Ene [facility]rich 2021-10-19 10:30:00 2021-10-19 10:30:00 Office Visit MARC DURAN [id number] Ene Aldrich 2021-10-19 09:55:00 2021-10-19 09:55:00 Outpatient ENE RASMUSSEN [id number] Ene [facility]rich 2021-10-11 14:00:00 2021-10-11 14:30:00 Office Visit Fer Ivey [id number] Ene Aldrich 2021-10-11 00:00:00 2021-10-11 00:00:00 Outpatient MARC DURAN [id number] [facility] Results Test Description Test Time Test Comments Results Result Co [facility] [id number] 23:30:49* Test Item Value Reference Range Interpretation Comme nts POCT Molecular FluA (test co de = 37822-8) Negative Negative POCT Molecular FluB (test co de = 67261-2) Negative Negative Lab Interpretation (test cod e = 77524-3) Normal [facility]
[2024-04-17] MEDS ORDERED: METHYLPREDNISOLONE 125 MG INJ ONE (12:06)
[2024-04-17] MEDS ORDERED: KETOROLAC 30 MG/ML INJ ONE (12:06)
[2024-04-17] MEDS ORDERED: MORPHINE 4 MG/ML SYR ONE (12:06)
[2024-04-17] MEDS ORDERED: HYDROMORPHONE HCL 1 MG/ML INJ ONE (13:13)
--- NOTE | 2024-04-17 14:15 | ER ---
Nurse's Notes [facility] Name: Karen Bunn Age: 33 yrs Sex: Female : 1990 Arrival Date: 04/17/2024 Time: 11:33 Bed 13 Private MD: Diagnosis: Pseudogout Presentation: 04/17 11:50 Chief complaint: Patient states: Left knee pain and swelling onset Sunday. Pt was seen cm10 here on 04/02 and had fluid drained. Pt states that she followed up with ortho and was cleared to go back to work. Pt states that today she is unable to put weight on that leg. Coronavirus screen: Client denies travel out of the [place] in the last 14 days. Ebola Screen: Patient denies travel to an Ebola-affected area in the 21 days before illness onset. No symptoms or risks identified at this time. Initial Sepsis Screen: Does the patient meet any 2 criteria? No. Patient's initial sepsis screen is negative. Does the patient have a suspected source of infection? No. Patient's initial sepsis screen is negative. Risk Assessment: Do you want to hurt yourself or someone else? Patient reports no desire to harm self or others. Onset of symptoms was April 17, 2024. 11:50 Method Of Arrival: Wheelchair cm10 11:50 Acuity: CARLOS 4 cm10 Triage Assessment: 11:53 General: Appears in no apparent distress. uncomfortable, Behavior is crying. Pain: cm10 Complains of pain in left knee Pain radiates to posterior aspect of left knee and left quadriceps Pain currently is 10 out of 10 on a pain scale. Quality of pain is described as burning, aching, sharp, shooting, stabbing, Pain began 2-3 days ago. Neuro: No deficits noted. Level of Consciousness is awake, alert, obeys commands, Oriented to person, place, time, situation, Appropriate for age. Respiratory: No deficits noted. Airway is patent Respiratory effort is even, unlabored, Respiratory pattern is regular, symmetrical. Derm: No deficits noted. Skin is intact, Skin is pink, warm \T\ dry. Musculoskeletal: Swelling present in left knee Reports pain in left knee. Historical: - Allergies: 11:53 No Known Allergies; cm10 - PSHx: 11:53 c section X4; cm10 - Immunization history:: Adult Immunizations unknown. - Infectious Disease History:: Denies. - Social history:: Smoking status: Reported history of juuling and/or vaping. - Family history:: not pertinent. - Hospitalizations: : No recent hospitalization is reported. Screenin:55 [facility] ED Fall Risk Assessment (Adult) History of falling in the last 3 months, cm10 including since admission No falls in past 3 months (0 pts) Confusion or Disorientation No (0 pts) Intoxicated or Sedated No (0 pts) Impaired Gait Yes (1 pt) Mobility Assist Device Used Yes (1 pt) Altered Elimination No (0 pt) Score/Fall Risk Level 0 - 2 = Low Risk Oriented to surroundings, Maintained a safe environment, Hourly rounding (assess needs \T\ fall precautionary measures) done. Abuse screen: Denies threats or abuse. Denies injuries from another. Nutritional screening: No deficits noted. Tuberculosis screening: No symptoms or risk factors identified. Assessment: 12:30 Reassessment: Patient appears in no apparent distress at this time. No changes from cm10 previously documented assessment. Patient states symptoms have not improved. Vital Signs: 11:50 BP 126 / 90; Pulse 84; Resp 16 S; Temp 98.3(O); Pulse Ox 95% on R/A; Weight 61.23 kg cm10 (R); Height 5 ft. 3 in. (R); Pain 10/10; 11:50 Body Mass Index 23.91 (61.23 kg, 160.02 cm) cm10 11:50 Pain Scale: Adult cm10 ED Course: 11:37 Patient arrived in ED. mr 11:38 Ayad Appiah MD is Attending Physician. rn 11:53 Triage completed. cm10 11:53 Arm band placed on right wrist. Patient placed in an exam room, on a stretcher. cm10 11:56 Patient has correct armband on for positive identification. Bed in low position. Call cm10 light in reach. Side rails up X 1. Provided Education on: ER process and procedures.. 12:04 Sadia Dupont, RN is Primary Nurse. cm10 12:10 Inserted saline lock: 20 gauge in right antecubital area, using aseptic technique. cm10 Flushed with 10 mL NS. 14:40 No provider procedures requiring assistance completed. IV discontinued, intact, jl7 bleeding controlled, No redness/swelling at site. Pressure dressing applied. Administered Medications: 12:13 Drug: MethylPrednisoLONE IVP 125 mg IVP once Route: IVP; Site: right antecubital; cm10 12:58 Follow up: Response: No adverse reaction cm10 12:13 Drug: Ketorolac IVP 30 mg IVP once Route: IVP; Site: right antecubital; cm10 12:58 Follow up: Response: No adverse reaction cm10 12:13 Drug: morphine IVP or IV 4 mg IVP once over 4 mins Route: IVP; Infused Over: 4 mins; cm10 Site: right antecubital; 12:58 Follow up: Response: No adverse reaction cm10 13:17 Drug: HYDROmorphone IVP 1 mg IVP once Route: IVP; Site: right antecubital; cm10 14:40 Follow up: Response: No adverse reaction jl7 Medication: 11:55 VIS not applicable for this client. cm10 Outcome: 14:14 Discharge ordered by . rn 14:40 Discharged to home via wheelchair, with family, [facility] [place] 14:40 Condition: stable 14:40 Discharge instructions given to patient, family, Instructed on discharge instructions, follow up and referral plans. medication usage, Demonstrated understanding of instructions, follow-up care, medications, Prescriptions given X 2, 14:41 Patient left the ED. jl7 Signatures: Ania Garcia Reg Reg mr Ayad Appiah MD MD rn Leal, Jahala, RN RN jl7 Sadia Dupont RN RN cm10
--- NOTE | 2024-04-17 14:15 | EDPHYS ---
Physician Documentation [facility] Name: Karen Bunn Age: 33 yrs Sex: Female : 1990 Arrival Date: 04/17/2024 Time: 11:33 Bed 13 Private MD: ED Physician Ayda Appiah HPI: 04/17 13:55 This 33 yrs old Female presents to ER via Wheelchair with complaints of Knee swelling. rn 13:55 The patient presents with pain, that is acute. The complaints affect the left knee. rn Onset: The symptoms/episode began/occurred 1 week(s) ago. Modifying factors: The symptoms are alleviated by nothing. the symptoms are aggravated by weight bearing, bending knee. Severity of symptoms: At their worst the symptoms were moderate, in the emergency department the symptoms are unchanged. The patient has not experienced similar symptoms in the past. Patient reports knee pain that started in the last week or 2, already evaluated for it, had knee aspiration that diagnosed pseudogout. Has been taking medication and has followed up with orthopedics but knee has not improved. No worsening of symptoms. No fever or systemic symptoms.. Historical: - Allergies: 11:53 No Known Allergies; cm10 - PSHx: 11:53 c section X4; cm10 - Immunization history:: Adult Immunizations unknown. - Infectious Disease History:: Denies. - Social history:: Smoking status: Reported history of juuling and/or vaping. - Family history:: not pertinent. - Hospitalizations: : No recent hospitalization is reported. ROS: 13:55 Constitutional: Negative for fever, chills, and weight loss, MS/Extremity: Positive for rn left knee pain and swelling Exam: 13:55 Constitutional: This is a well developed, well nourished patient who is awake, alert, rn and in no acute distress. MS/ Extremity: Pulses equal, no cyanosis. Neurovascular intact. Left knee effusion with painful range of motion. No overlying skin erythema or warmth. Vital Signs: 11:50 BP 126 / 90; Pulse 84; Resp 16 S; Temp 98.3(O); Pulse Ox 95% on R/A; Weight 61.23 kg cm10 (R); Height 5 ft. 3 in. (R); Pain 10/10; 11:50 Body Mass Index 23.91 (61.23 kg, 160.02 cm) cm10 11:50 Pain Scale: Adult cm10 MDM: 11:38 Medical Screening Exam initiated rn 14:11 Differential diagnosis: Pseudogout, knee effusion. Data reviewed: vital signs, nurses rn notes, old medical records, and as a result, I will discharge patient. Counseling: I had a detailed discussion with the patient and/or guardian regarding the historical points, exam findings, and any diagnostic results supporting the discharge/admit diagnosis, the need for outpatient follow up, to return to the emergency department if symptoms worsen or persist or if there are any questions or concerns that arise at home. Special discussion: I discussed with the patient/guardian in detail that at this point there is no indication for admission to the hospital. It is understood, however, that if the symptoms persist or worsen the patient needs to return immediately for re-evaluation. 04/17 12:01 Order name: IV Start; Complete Time: 12:13 rn Administered Medications: 12:13 Drug: MethylPrednisoLONE IVP 125 mg IVP once Route: IVP; Site: right antecubital; cm10 12:58 Follow up: Response: No adverse reaction cm10 12:13 Drug: Ketorolac IVP 30 mg IVP once Route: IVP; Site: right antecubital; cm10 12:58 Follow up: Response: No adverse reaction cm10 12:13 Drug: morphine IVP or IV 4 mg IVP once over 4 mins Route: IVP; Infused Over: 4 mins; cm10 Site: right antecubital; 12:58 Follow up: Response: No adverse reaction cm10 13:17 Drug: HYDROmorphone IVP 1 mg IVP once Route: IVP; Site: right antecubital; cm10 14:40 Follow up: Response: No adverse reaction jl7 Disposition Summary: 04/17/24 14:14 Discharge Ordered Notes: Location: Home rn Problem: new rn Symptoms: have improved rn Condition: Stable rn Diagnosis - Pseudogout rn Followup: rn - With: Private Physician - When: As needed - Reason: Recheck today's complaints, Re-evaluation by your physician Discharge Instructions: - Discharge Summary Sheet rn - Gout rn Forms: - Medication Reconciliation Form rn - Antibiotic production pattern maker - Prescription Opioid Use rn - Patient Portal Instructions rn - Leadership Thank You Letter rn Prescriptions: - gabapentin 100 mg Oral capsule - take 1 capsule ORAL route every 12 hours As needed; 14 capsule; Refills: 0, rn Product Selection Permitted - Tramadol 50 mg Oral Tablet - take 1 tablet ORAL route every 8 hours as needed; 12 tablet; Refills: 0, rn Product Selection Permitted Signatures: Ayad Appiah MD MD rn Martinez, Clarissa, RN RN cm10 Bladimir Yadav RN jl7 Corrections: (The following items were deleted from the chart) 14:05 13:55 Constitutional: This is a well developed, well nourished patient who is awake, rn alert, and in no acute distress. rn
[2024-04-17 19:56] VITALS: BP 126/90; TEMP 98.3; O2SAT 95
== END 2024-04-17 14:41 | disposition home or self-care (01) ==
LOC: ER 11:33
DX: M10.9 Gout, unspecified (principal)
CPT/HCPCS: 96375; 96374; 99284; J1171; J2919